=== PATIENT | male | born 1940 | race Caucasian/White ===

== ENCOUNTER → 2018-06-16 | Outpatient (CLI) | payer MEDICARE ==
--- NOTE | 2018-06-16 10:17 | US ---
EXAMINATION TYPE: US abdomen complete DATE OF EXAM: 06/16/2018 COMPARISON: NONE CLINICAL HISTORY: 78-year-old male R10.13 Epigastric pain. Nausea TECHNIQUE: Multiple sonographic images of the abdomen are obtained. FINDINGS: EXAM MEASUREMENTS: Liver Length: 10.8 cm Gallbladder Wall: 0.3 cm CBD: 0.4 cm Spleen: 10.0 cm Right Kidney: 11.3 x 4.8 x 5.8 cm Left Kidney: 10.4 x 5.8 x 6.2 cm Pancreas: visualized portions wnl. There is suboptimal visualization of the pancreatic tail due to s hadowing from bowel gas. Liver: wnl Gallbladder: No stones , abnormal gallbladder distention, wall thickening, or pericholecystic fluid seen Evidence for sonographic Mart's sign: No CBD: wnl Spleen: wnl Right Kidney: No hydronephrosis. Left Kidney: No hydronephrosis. Upper IVC: wnl Abd Aorta: wnl IMPRESSION: No specific sonographic abnormality of the abdomen.
--- NOTE | 2018-06-16 14:34 | FL ---
EXAMINATION: Upper GI examination DATE: 06/16/2018 CLINICAL INDICATION: 78-year-old male with reflux issues for 3 days, epigastric pain COMPARISON: None Total Fluoroscopy Time: 2 minutes. Total images: 33 FINDINGS: The esophagus has a normal course, caliber, motility and mucosa. There is a small hiatal hernia. Moderate gastroesophageal reflux is demonstrated initially when the patient is brought supine and is in the LPO position. The stomach and duodenum are free of any persistent filling defect and demonstrate a normal mucosal p attern. IMPRESSION: 1. Small hiatal hernia and moderate gastroesophageal reflux when the patient is first brought supine. 2. Otherwise, unremarkable upper GI examination.
== END | disposition home or self-care (01) ==
LOC: RADUSWWP 07:12
PROVIDERS: ATTEND Family Medicine
DX: K21.9 Gastro-esophageal reflux disease without esophagitis (principal); K44.9 Diaphragmatic hernia without obstruction or gangrene; R10.13 Epigastric pain
CPT/HCPCS: 74240; 76700

== ENCOUNTER → 2020-12-04 | Outpatient (CLI) | payer MEDICARE ==
--- NOTE | 2020-12-10 10:16 | P.ARTDOP ---
Arterial Doppler LOWER EXTREMITY ARTERIAL DOPPLER: DATE OF SERVICE: 12/04/2019 Reason for study: Bilateral calf pain with standing. Doppler waveforms: Multiphasic bilaterally throughout. Pulse volume recording: []. Pressure gradients: None. Ankle-brachial indices: Greater than 1 bilaterally. Toe brachial indices: [] on the right, [] on the left Impression: Normal study.
== END | disposition home or self-care (01) ==
LOC: RADUSWWP 12:58
PROVIDERS: ATTEND Family Medicine
DX: I70.211 Atherosclerosis of native arteries of extremities with intermittent claudication, right leg (principal)
CPT/HCPCS: 93922

== ENCOUNTER → 2020-12-11 | Outpatient (CLI) | payer MEDICARE ==
--- NOTE | 2020-12-11 13:52 | MR ---
EXAMINATION TYPE: MR lumbar spine wo con DATE OF EXAM: 12/11/2020 12:08 PM COMPARISON: NONE HISTORY: Pain into ron legs, sciatica Multiplanar, MultiSpin echo imaging of the lumbar spine was performed. L1-L2: Normal disc appearance without desiccation. No herniation, protrusion or disc bulging. No ca nal stenosis is present. Foramina are patent bilaterally. L2-L3: Moderate degenerative disc disease. Posterior disc bulge effaces the ventral thecal sac. No ev idence for elizabeth disc herniation or central stenosis. L3-L4: Moderate disc desiccation moderate posterior disc bulge. Effacement ventral thecal sac with mo derate central stenosis. Hypertrophy ligamentum flavum and facet joint arthropathy. Bilateral foramin al encroachment. L4-L5: Moderate disc desiccation moderate posterior disc bulge. Effacement ventral thecal sac with se alberto central stenosis. Hypertrophy ligamentum flavum and facet joint arthropathy. Bilateral foraminal encroachment. L5-S1: Mild disc desiccation noted. No herniation, protrusion or disc bulging. No canal stenosis is present. Foramina are patent bilaterally. Lumbar segments are intact. No paraspinal masses are identified. Conus medullaris has a normal appe arance. IMPRESSION: 1. Multilevel degenerative disc disease and central stenosis as outlined above.
== END | disposition home or self-care (01) ==
LOC: RADMRIMAIN 10:35
PROVIDERS: ATTEND Family Medicine
DX: M48.061 Spinal stenosis, lumbar region without neurogenic claudication (principal); M51.36 Other intervertebral disc degeneration, lumbar region
CPT/HCPCS: 72148

== ENCOUNTER → 2021-03-10 | Outpatient (CLI) | payer MEDICARE ==
--- NOTE | 2021-03-11 08:47 | XR ---
EXAMINATION TYPE: XR chest 2V DATE OF EXAM: 03/10/2021 COMPARISON: 04/28/2016 HISTORY: Night sweats, anemia TECHNIQUE: Frontal and lateral views of the chest are obtained. FINDINGS: Low lung volumes. Heart size is within normal limits. Tiny bilateral pleural effusions. Th ere is a focal patchy airspace opacity at the left lung base which is somewhat nodular. This may repr esent infectious/inflammatory focus. Follow-up to resolution is recommended to exclude underlying george plasm. No pneumothorax. IMPRESSION: 1.tiny bilateral pleural effusions. 2. Patchy airspace opacity at the left lung base is somewhat nodular. Follow-up to resolution is marlon mmended for infectious/inflammatory process. Underlying neoplasm is not excluded.
== END | disposition home or self-care (01) ==
LOC: RADXRMAIN 16:28
PROVIDERS: ATTEND Family Medicine
DX: J90 Pleural effusion, not elsewhere classified (principal); R91.8 Other nonspecific abnormal finding of lung field
CPT/HCPCS: 71046

== ENCOUNTER → 2021-03-26 | Outpatient (CLI) | payer MEDICARE ==
--- NOTE | 2021-03-26 17:28 | CT ---
EXAMINATION TYPE: CT chest wo con DATE OF EXAM: 03/26/2021 COMPARISON: Chest x-ray March 10, 2021 HISTORY: Abnormal imaging. Patient has no complaints at time of scan. CT DLP: 305.1 mGycm. Automated Exposure Control for Dose Reduction was Utilized. TECHNIQUE: CT scan of the thorax is performed without IV contrast. FINDINGS: LUNGS: There is persistent soft tissue density nodule lateral right lung base measuring 1.7 x 0.6 cm axial image 56 mild linear scarring anterior to this is present. No suspicious focal consolidation in either lung. Mild biapical pleural/parenchymal scarring. No pleural effusion or pneumothorax seen. T racheobronchial tree is patent. MEDIASTINUM: Lack of IV contrast is noted to limit evaluation for mediastinal and especially hilar ad enopathy. There are no definitive greater than 1 cm mediastinal lymph nodes. No cardiomegaly or per icardial effusion is seen. Moderate three-vessel coronary artery calcification. Correlate with additi onal cardiac risk factors. Ascending aortic aneurysm up to 4.0 cm axial image 32. OTHER: Exaggerated kyphosis with moderate multilevel spurring. IMPRESSION: Corresponding to x-ray there is persistent 1.7 x 0.6 cm lateral right basilar nodule. Con concrete engineer PET/CT to further evaluate. There is 4.0 cm ascending aortic aneurysm.
--- NOTE | 2021-03-27 18:45 | ECHOF ---
Referral Reason:R91.8 abnormal imaging, MEASUREMENTS -------- HEIGHT: 182.9 cm WEIGHT: 81.6 kg BP: RVIDd: 2.9 cm (< 3.3) IVSd: 1.1 cm (0.6 - 1.1) LVIDd: 4.3 cm (3.9 - 5.3) LVPWd: 1.1 cm (0.6 - 1.1) IVSs: 1.2 cm LVIDs: 3.4 cm LVPWs: 1.3 cm LA Diam: 3.5 cm (2.7 - 3.8) LAESV Index (A-L): 24.98 ml/m Ao Diam: 3.1 cm (2.0 - 3.7) AV Cusp: 2.0 cm (1.5 - 2.6) MV EXCURSION: 20.824 mm (> 18.000) MV EF SLOPE: 82 mm/s (70 - 150) EPSS: 0.2 cm MV E Francisco J: 0.77 m/s MV DecT: 125 ms MV A Francisco J: 0.54 m/s MV E/A Ratio: 1.43 RAP: 5.00 mmHg RVSP: 29.11 mmHg FINDINGS -------- Sinus rhythm. This was a technically good study. LV size, wall thickness and systolic function are normal, with an EF greater than 55%. The left shayan tricular size is normal. The right ventricle is normal in size. Normal LA size by volume 22+/-6 ml/m2. The right atrial size is normal. The aortic valve is trileaflet, and appears structurally normal. No aortic stenosis or regurgitation. Mild mitral regurgitation is present. Mild tricuspid regurgitation present. Right ventricular systolic pressure is normal at < 35 mmHg. There is no pulmonic regurgitation present. There is no pericardial effusion. CONCLUSIONS -------- 1. LV size, wall thickness and systolic function are normal, with an EF greater than 55%. 2. The left ventricular size is normal. 3. The right ventricle is normal in size. 4. Normal LA size by volume 22+/-6 ml/m2. 5. The right atrial size is normal. 6. The aortic valve is trileaflet, and appears structurally normal. No aortic stenosis or regurgitati on. 7. Mild mitral regurgitation is present. 8. Mild tricuspid regurgitation present. 9. There is no pulmonic regurgitation present. 10. There is no pericardial effusion. SALES TEAM LEADER: Michelle Espinal RDCS
== END | disposition home or self-care (01) ==
LOC: RADCTMAIN 14:49
PROVIDERS: ATTEND Family Medicine
DX: I08.1 Rheumatic disorders of both mitral and tricuspid valves (principal); R91.1 Solitary pulmonary nodule
CPT/HCPCS: 71250; 93306

== ENCOUNTER → 2021-04-10 | Outpatient (CLI) | payer MEDICARE ==
--- NOTE | 2021-04-14 13:13 | PE ---
EXAMINATION TYPE: PET CT fusion skull to thigh DATE OF EXAM: 04/10/2021 COMPARISON: CT chest 03/26/2021 Prior PET/CT: None HISTORY: Lung nodule TECHNIQUE: Following the intravenous administration of 11.57 mCi of F-18 FDG, whole body images are performed from the skull base to the midthigh. Images are reviewed on the computer in the coronal, a xial, and sagittal planes. Reconstructed rotating images are created on independent workstation and reviewed on the computer. A localization and attenuation correction CT is performed in conjunction with the PET scan. DLP: 475.30 mGycm SCAN: Initial Scan Blood glucose: 80 mg/dL Average Mediastinum SUV: 1.27 Average Liver SUV: 1.2 FINDINGS: NECK: No abnormal uptake THORAX: No abnormal uptake. The density of the right costophrenic angle is not visualized on the curr ent localization CT. Consider follow-up CT chest and 6 months. ABDOMEN: No abnormal uptake PELVIS: No abnormal uptake OSSEOUS STRUCTURES: Technique LOCALIZATION CT: Previous density at the right costophrenic angle less well-visualized than on compar abby. COMPARISON: Resolving density at the right costophrenic angle IMPRESSION: 1. No suspicious uptake to suggest primary or metastatic neoplasm. Recommendations: 1. Follow-up standard CT chest 6 months.
== END | disposition home or self-care (01) ==
LOC: RADPETMAIN 12:18
PROVIDERS: ATTEND Internal Medicine Critical Care Medicine
DX: R91.1 Solitary pulmonary nodule (principal)
CPT/HCPCS: 78815; A9552

== ENCOUNTER → 2021-10-13 | Outpatient (CLI) | payer MEDICARE ==
--- NOTE | 2021-10-13 14:11 | CT ---
EXAMINATION TYPE: CT chest w con DATE OF EXAM: 10/13/2021 COMPARISON: 04/10/2021, 03/26/2020 HISTORY: Follow-up lung nodule CT DLP: 503 mGycm Automated exposure control for dose reduction was used. TECHNIQUE: CT scan of the chest is performed with IV Contrast, patient injected with 100 mL of Isovue 300. MIP Images are created on CT scanner and reviewed. 3D reconstructed images are created on an independent workstation and reviewed. FINDINGS: LUNGS: There is persistent soft tissue density nodule lateral right lung base measuring 0.85 x 0.6 cm and previously measured 1.7 x 0.6 cm. Biapical pleural thickening with areas of subpleural nodularit y is stable. Underlying COPD suggested. No suspicious focal consolidation in either lung. Mild biapic al pleural/parenchymal scarring. No pleural effusion or pneumothorax seen. Tracheobronchial tree is p atent. Tree-in-bud pattern seen along the right lung base likely postinflammatory with tiny sub-5 mm nodules too small to characterize MEDIASTINUM: There are no greater than 1 cm hilar or mediastinal lymph nodes. Atherosclerotic change aorta. Thoracic aorta measures 3.9 cm stable compatible with mild aneurysmal dilation of the ascendin g aorta.. OTHER: Hypertrophic and degenerative change of the spine IMPRESSION: 1. Interval reduction in size of the right lower lobe basilar nodule laterally measuring 0.8 x 0.6 cm and previously measuring 1.7 x 0.6 cm. 2. COPD with stable apical pleural thickening and subcentimeter subpleural nodularity unchanged from prior exam. There is a tree-in-bud pattern seen localized in the lateral segment right lower lobe is nonspecific and likely inflammatory and can be followed on short-term basis to resolution.
== END | disposition home or self-care (01) ==
LOC: RADCTMAIN 12:21
PROVIDERS: ATTEND Internal Medicine Critical Care Medicine
DX: R91.1 Solitary pulmonary nodule (principal); J44.9 Chronic obstructive pulmonary disease, unspecified; J92.9 Pleural plaque without asbestos
CPT/HCPCS: 82565; 84520; 71260; 36415; Q9967

== ENCOUNTER → 2022-11-11 | Outpatient (CLI) | payer MEDICARE ==
--- NOTE | 2022-11-11 14:58 | CT ---
EXAMINATION TYPE: CT chest w con DATE OF EXAM: 11/11/2022 COMPARISON: 10/13/2021 HISTORY: Lung Nodule CT DLP: 376 mGycm Automated exposure control for dose reduction was used. CONTRAST: CT scan of the chest is performed with IV Contrast, patient injected with 100 ml mL of Isovue 300. FINDINGS: LUNGS: Stable nodular density right lateral lung base measuring 0.8 x 0.6 cm. Stable tree in bud micr onodularity right lower lobe likely inflammatory/postinflammatory in nature seen best on image 56 of 68 sequence 4. Stable biapical scarring. No new nodules or masses. No evidence for infiltrate, volume loss or pleural effusion. MEDIASTINUM: There are no greater than 1 cm hilar or mediastinal lymph nodes. No pericardial effusi on is seen. Thoracic aorta is of normal caliber. The heart is not enlarged. UPPER ABDOMEN: No significant abnormality appreciated. OTHER: No additional significant abnormality is seen. IMPRESSION: Stable appearance of the chest.
== END | disposition home or self-care (01) ==
LOC: RADCTMAIN 12:56
PROVIDERS: ATTEND Internal Medicine Critical Care Medicine
DX: R91.1 Solitary pulmonary nodule (principal)
CPT/HCPCS: 82565; 84520; 71260; 36415; Q9967

== ENCOUNTER → 2022-11-15 | Outpatient (CLI) | payer MEDICARE ==
--- NOTE | 2022-11-15 11:10 | MR ---
EXAMINATION TYPE: MR lumbar spine wo con DATE OF EXAM: 11/15/2022 COMPARISON: 12/11/2020 HISTORY: Low back pain, stenosis TECHNIQUE: T1 and T2 axial and sagittal images of the lumbar spine are submitted. FINDINGS: There is no abnormal signal seen within the visualized spinal cord or paraspinal soft tissu es. At L1-2 there is hypertrophic change of the facets with no disc herniation or canal stenosis. Neural foramina At L2-3 there is degenerative disc disease with hypertrophic change since an ligamentum flavum. Diffu se disc bulging with moderate canal stenosis and bilateral foraminal curvature. At L3-4 there is diffuse disc bulging advanced atrophic facet arthropathy and ligamentum flavum resul ting in moderate to severe canal stenosis and bilateral foraminal At L4-5 there is broad-based disc protrusion with advanced facet arthropathy with hypertrophic change s and ligamentum flavum resulting in severe canal stenosis and bilateral foraminal At L5-S1 there is advanced hypertrophic change of the facets. Mild flattening of the thecal sac. Mild bilateral foraminal encroachment. Mild canal stenosis. IMPRESSION: 1. Multilevel degenerative disc disease with minimal anterior listhesis of L4 on L5. There is multile chacha significant canal stenosis with severe changes at L4-L5. Severe bilateral foraminal encroachment at this level.
== END | disposition home or self-care (01) ==
LOC: RADMRIMAIN 09:24
DX: M51.36 Other intervertebral disc degeneration, lumbar region (principal); M48.062 Spinal stenosis, lumbar region with neurogenic claudication; M99.73 Connective tissue and disc stenosis of intervertebral foramina of lumbar region; M43.16 Spondylolisthesis, lumbar region
CPT/HCPCS: 72148

== ENCOUNTER 2023-01-23 11:15 | Inpatient (IN) | payer MEDICARE ==
[2023-01-23] MEDS ORDERED: SODIUM CHLORIDE 0.9% 500 ML 500 ML IV STA (11:24)
[2023-01-23] MEDS ORDERED: HEPARIN SODIUM 1,000 UN/ML (10ML VL) IV ONE (11:25)
[2023-01-23] MEDS ORDERED: DILTIAZEM DRIP BOLUS FROM BAG 1 MG SOLN IV ONE (11:25)
--- NOTE | 2023-01-23 11:28 | ED ---
General Adult HPI - General Stated complaint: AFib Time Seen by Provider: 01/23/23 11:15 Source: patient, EMS, RN notes reviewed, old records reviewed Mode of arrival: EMS Limitations: no limitations - History of Present Illness Initial comments: This is an 82-year-old male who presents emergency department after he went to an urgent care. Patient states he was here she Can feel his heart racing. Patient has no history of any irregular heartbeat or atrial fibrillation that he knows of. Patient states when he went there they told him he had atrial fibrillation in the transferred to the hospital via ambulance. Patient denies any fever chills or cough. Patient denies any chest pain. Patient states he still can feel his heart racing per patient denies any abdominal pain patient denies nausea vomiting diarrhea. Patient denies any headache patient denies lightheadedness or dizziness. - Related Data Home Medications Medication Instructions Recorded Confirmed atenoloL [Tenormin] 50 mg PO HS 01/23/23 01/23/23 Allergies Allergy/AdvReac Type Severity Reaction Status Date / Time No Known Allergies Allergy Verified 01/23/23 11:46 Review of Systems ROS Statement: Those systems with pertinent positive or pertinent negative responses have been documented in the HPI. ROS Other: All systems not noted in ROS Statement are negative. Past Medical History Past Medical History: Hearing Disorder / Deafness, Hypertension Additional Past Medical History / Comment(s): ABDELRAHMAN HEARING AIDS. History of Any Multi-Drug Resistant Organisms: None Reported Past Surgical History: Tonsillectomy Additional Past Surgical History / Comment(s): COLONOSCOPY Past Anesthesia/Blood Transfusion Reactions: No Reported Reaction Additional Past Anesthesia/Blood Transfusion Reaction / Comment(s): PTS UNSURE OF FAMILY HX. Past Psychological History: No Psychological Hx Reported Smoking Status: Former smoker Past Alcohol Use History: Daily, Occasional Past Drug Use History: None Reported - Past Family History Mother Family Medical History: No Reported History General Exam - General Exam Comments Initial Comments: GENERAL: Patient is well-developed and well-nourished. Patient is nontoxic and well- hydrated and is in mild distress. ENT: Neck is soft and supple. No significant lymphadenopathy is noted. Oropharynx is clear. Moist mucous membranes. Neck has full range of motion without eliciting any pain. EYES: The sclera were anicteric and conjunctiva were pink and moist. Extraocular movements were intact and pupils were equal round and reactive to light. Eyelids were unremarkable. PULMONARY: Unlabored respirations. Good breath sounds bilaterally. No audible rales rhonchi or wheezing was noted. CARDIOVASCULAR: Patient is tachycardic at about 140 beats a minute it is irregularly irregular ABDOMEN: Soft and nontender with normal bowel sounds. No palpable organomegaly was noted. There is no palpable pulsatile mass. SKIN: Skin is clear with no lesions or rashes and otherwise unremarkable. NEUROLOGIC: Patient is alert and oriented x3. Cranial nerves II through XII are grossly intact. Motor and sensory are also intact. Normal speech, volume and content. Symmetrical smile. MUSCULOSKELETAL: Normal extremities with adequate strength and full range of motion. No lower extremity swelling or edema. No calf tenderness. LYMPHATICS: No significant lymphadenopathy is noted PSYCHIATRIC: Normal psychiatric evaluation. Limitations: no limitations Course Vital Signs 01/23/23 01/23/23 11:16 12:32 Temperature 98.3 F Pulse Rate 126 H 102 H Respiratory 18 18 Rate Blood Pressure 123/76 110/75 O2 Sat by Pulse 98 98 Oximetry Medical Decision Making - Medical Decision Making EKG was interpreted by myself shows atrial fibrillation with rapid ventricular response at 126 bpm QRS is 92 QT interval 318 QTC is 393. Patient's EKG shows no ST segment elevation or depression Was pt. sent in by a medical professional or institution ([facility] Waters, [employer], urgent care, hospital, or correction...) When possible be specific @ -No Did you speak to anyone other than the patient for history (EMS, parent, family, police, friend...)? What history was obtained from this source @ -No Did you review nursing and triage notes (agree or disagree)? Why? @ -I reviewed and agree with nursing and triage notes Were old charts reviewed (outside hosp., previous admission, EMS record, old EKG, old radiological studies, urgent care reports/EKG's, correction records)? Report findings @ -I reviewed prior charts lab results Differential Diagnosis (chest pain, altered mental status, abdominal pain women, abdominal pain men, vaginal bleeding, weakness, fever, dyspnea, syncope, headache, dizziness, GI bleed, back pain, seizure, CVA, palpatations, mental health, musculoskeletal)? @ -Differential Palpitations Ventricular arrhythmias, atrial arrhythmias, myocardial infarction, anemia, thyrotoxicosis, electrolyte imbalance, hypokalemia, pulmonary embolism, pulmonary disease, drugs, alcohol, anxiety, stress.... This is not meant to be an all-inclusive list. EKG interpreted by me (3pts min.). @ -As above X-rays interpreted by me (1pt min.). @ -Chest x-ray was interpreted by myself No Acute Abnormalities CT interpreted by me (1pt min.). @ -None done U/S interpreted by me (1pt. min.). @ -None done What testing was considered but not performed or refused? (CT, X-rays, U/S, labs)? Why? @ -None What meds were considered but not given or refused? Why? @ -None Did you discuss the management of the patient with other professionals (professionals i.e. , PA, [employer], lab, RT, psych nurse, manager social responsibility, seam steamer, teacher, state highway police officer, supportive employment case manager)? Give summary @ -Spoke with some physicians agreed to admit the patient and the patient wrote admitting orders Was smoking cessation discussed for >3mins.? @ -No Was critical care preformed (if so, how long)? @ -Minutes Were there social determinants of health that impacted care today? How? (Homelessness, low income, unemployed, alcoholism, drug addiction, transport ation, low edu. Level, literacy, decrease access to med. care, shelter, rehab)? @ -No Was there de-escalation of care discussed even if they declined (Discuss DNR or withdrawal of care, Hospice)? DNR status @ -No What co-morbidities impacted this encounter? (DM, HTN, Smoking, COPD, CAD, Cancer, CVA, ARF, Chemo, Hep., AIDS, mental health diagnosis, sleep apnea, morbid obesity)? @ -None Was patient admitted / discharged? Hospital course, mention meds given and route, prescriptions, significant lab abnormalities, going to OR and other pertinent info. @ -Patient came in in atrial fibrillation which was new for him. Patient was placed on Cardizem after Cardizem bolus. Patient was started on heparin. Labs came back I spoke with the sound physician's he agreed to admit the patient I admitted the patient wrote admitting orders. Undiagnosed new problem with uncertain prognosis? @ -No Drug Therapy requiring intensive monitoring for toxicity (Heparin, Nitro, Insulin, Cardizem)? @ -No Were any procedures done? @ -No Diagnosis/symptom? @ -New onset A. fib with rapid ventricular response Acute, or Chronic, or Acute on Chronic? @ -Acute Uncomplicated (without systemic symptoms) or Complicated (systemic symptoms)? @ -Complicated Side effects of treatment? @ -No Exacerbation, Progression, or Severe Exacerbation? @ -No Poses a threat to life or bodily function? How? (Chest pain, [place], PR, pneumonia, PE, COPD, DKA, ARF, appy, cholecystitis, CVA, Diverticulitis, Homicidal, Suicidal, threat to staff... and all critical care pts) @ -Yes this could be due to hypoperfusion and end organ dysfunction - Lab Data Result diagrams: 01/23/23 11:29 01/23/23 11:29 Lab Results 01/23/23 01/23/23 01/23/23 Range/Units 11:29 11:29 11:29 WBC 6.2 (3.8-10.6) k/uL RBC 4.62 (4.30-5.90) m/uL Hgb 14.9 (13.0-17.5) gm/dL Hct 42.9 (39.0-53.0) % MCV 92.7 (80.0-100.0) fL MCH 32.2 (25.0-35.0) pg MCHC 34.8 (31.0-37.0) g/dL RDW 12.4 (11.5-15.5) % Plt Count 166 (150-450) k/uL MPV 9.2 Neutrophils % 68 % Lymphocytes % 22 % Monocytes % 6 % Eosinophils % 2 % Basophils % 0 % Neutrophils # 4.2 (1.3-7.7) k/uL Lymphocytes # 1.3 (1.0-4.8) k/uL Monocytes # 0.4 (0-1.0) k/uL Eosinophils # 0.1 (0-0.7) k/uL Basophils # 0.0 (0-0.2) k/uL PT 10.8 (9.0-12.0) sec INR 1.0 (<1.2) APTT 23.5 (22.0-30.0) sec Sodium 140 (137-145) mmol/L Potassium 4.4 (3.5-5.1) mmol/L Chloride 105 (98-107) mmol/L Carbon Dioxide 28 (22-30) mmol/L Anion Gap 7 mmol/L BUN 28 H (9-20) mg/dL Creatinine 1.04 (0.66-1.25) mg/dL Est GFR (CKD-EPI)AfAm 77 (>60 ml/min/1.73 sqM) Est GFR (CKD-EPI)NonAf 67 (>60 ml/min/1.73 sqM) Glucose 146 H (74-99) mg/dL Calcium 9.6 (8.4-10.2) mg/dL Magnesium 2.2 (1.6-2.3) mg/dL Total Bilirubin 0.9 (0.2-1.3) mg/dL AST 35 (17-59) U/L ALT 22 (4-49) U/L Alkaline Phosphatase 64 (38-126) U/L Troponin I (0.000-0.034) ng/mL Total Protein 7.4 (6.3-8.2) g/dL Albumin 4.4 (3.5-5.0) g/dL TSH 1.990 (0.465-4.680) mIU/L 01/23/23 Range/Units 11:29 WBC (3.8-10.6) k/uL RBC (4.30-5.90) m/uL Hgb (13.0-17.5) gm/dL Hct (39.0-53.0) % MCV (80.0-100.0) fL MCH (25.0-35.0) pg MCHC (31.0-37.0) g/dL RDW (11.5-15.5) % Plt Count (150-450) k/uL MPV Neutrophils % % Lymphocytes % % Monocytes % % Eosinophils % % Basophils % % Neutrophils # (1.3-7.7) k/uL Lymphocytes # (1.0-4.8) k/uL Monocytes # (0-1.0) k/uL Eosinophils # (0-0.7) k/uL Basophils # (0-0.2) k/uL PT (9.0-12.0) sec INR (<1.2) APTT (22.0-30.0) sec Sodium (137-145) mmol/L Potassium (3.5-5.1) mmol/L Chloride (98-107) mmol/L Carbon Dioxide (22-30) mmol/L Anion Gap mmol/L BUN (9-20) mg/dL Creatinine (0.66-1.25) mg/dL Est GFR (CKD-EPI)AfAm (>60 ml/min/1.73 sqM) Est GFR (CKD-EPI)NonAf (>60 ml/min/1.73 sqM) Glucose (74-99) mg/dL Calcium (8.4-10.2) mg/dL Magnesium (1.6-2.3) mg/dL Total Bilirubin (0.2-1.3) mg/dL AST (17-59) U/L ALT (4-49) U/L Alkaline Phosphatase (38-126) U/L Troponin I <0.012 (0.000-0.034) ng/mL Total Protein (6.3-8.2) g/dL Albumin (3.5-5.0) g/dL TSH (0.465-4.680) mIU/L Critical Care Time Critical Care Time: Yes Total Critical Care Time: 35 Disposition Clinical Impression: Atrial fibrillation with rapid ventricular response Disposition: ADMITTED IP TO THIS HOSP Referrals: Jeramy Oh MD [Primary Care Provider] - 1-2 days Time of Disposition: 13:02
[2023-01-23] MEDS ORDERED: DILTIAZEM 125 MG in SODIUM CHLORIDE 0.9% 100 ML IV SCH (11:30)
[2023-01-23] MEDS ORDERED: HEPARIN SOD,PORK IN 0.45% NACL 25,000 UNIT in 0.45% NACL 1 250ML.BAG IV SCH (11:30)
[2023-01-23 11:46] LABS: Basophils % (A) 0 %; Eosinophils # (A) 0.1 k/uL (0-0.7); Eosinophils % (A) 2 %; HCT 42.9 % (39.0-53.0); HGB 14.9 gm/dL (13.0-17.5); Lymphocytes # (A) 1.3 k/uL (1.0-4.8); Lymphocytes % (A) 22 %; MCH 32.2 pg (25.0-35.0); MCHC 34.8 g/dL (31.0-37.0); MCV 92.7 fL (80.0-100.0); Mean Platelet Volume 9.2; Monocytes # (A) 0.4 k/uL (0-1.0); Monocytes % (A) 6 %; Neutrophils # (A) 4.2 k/uL (1.3-7.7); Neutrophils % (A) 68 %; Platelet Count 166 k/uL (150-450); RBC 4.62 m/uL (4.30-5.90); RDW 12.4 % (11.5-15.5); WBC 6.2 k/uL (3.8-10.6)
--- NOTE | 2023-01-23 11:49 | XR ---
EXAMINATION TYPE: XR chest 2V DATE OF EXAM: 01/23/2023 COMPARISON: 03/10/2021 HISTORY: Night sweats and lower extremity swelling TECHNIQUE: Frontal and lateral views of the chest are obtained. FINDINGS: There is no focal air space opacity, pleural effusion, or pneumothorax seen. The cardiac silhouette size is within normal limits. The osseous structures are intact. IMPRESSION: No acute cardiopulmonary process.
[2023-01-23 11:53] LABS: Albumin 4.4 g/dL (3.5-5.0); Calcium 9.6 mg/dL (8.4-10.2); Total Bilirubin 0.9 mg/dL (0.2-1.3); Total Protein 7.4 g/dL (6.3-8.2)
[2023-01-23 11:58] LABS: Partial Thromboplastin Time 23.5 sec (22.0-30.0); Prothrombin Time 10.8 sec (9.0-12.0)
[2023-01-23 12:02] LABS: Magnesium 2.2 mg/dL (1.6-2.3); Potassium 4.4 mmol/L (3.5-5.1)
[2023-01-23] MEDS ORDERED: NITROGLYCERIN SL TABS 0.4 MG TAB SUBLINGUAL PRN (13:02)
[2023-01-23] MEDS: ASPIRIN 325 MG TAB PO SCH (14:49)
--- NOTE | 2023-01-23 15:04 | P.HPIM ---
History of Present Illness H&P Date: 01/23/23 Chief Complaint: palpitations Patient is an 82-year-old male with hypertension, hearing disorder, and lung nodule who presented to the emergency department via EMS from urgent care where he had presented due to palpitations. An EKG had been performed which showed new onset A. fib. On arrival to the ER he was found be tachycardic with a pulse of 126. EKG confirmed atrial fibrillation with rapid ventricular response at 126 bpm. Initial laboratory analysis reviewed with normal potassium, magnesium, TSH, and troponin. Chest x-ray unrevealing. Patient was given a Cardizem bolus and started on Cardizem drip. Arrangements were made for admission to the telemetry unit. Patient seen and examined at bedside. He reports that on waking today he noted some heavy, rapid heart beats asociated with lightheadedness. He was supossed to drive to [place] and did not feel quite right and decided to go to urgent care. He denies any chest pain, shortness of breath, nausea, vomiting. He has chronic tingling in his bilateral fingertips and some weakness. He reports that he stopped taking his atenolol 2 days ago, he has an upcoming cervical fusion procedure scheduled and continues his atenolol with a blood thinner and therefore discontinued this medication. He denies any known cardiac problems or following with a crossing flagman in the past. He sees Dr. Oh for his primary care physician. Vital signs reviewed General: nontoxic, no distress, appears at stated age Derm: warm, dry Eyes: EOMI, no lid lag, anicteric sclera, pupils equal round reactive to light ENT: Nose and ears atraumatic, hard of hearing with hearing aids in place. Cardiovascular: S1S2 irreg, no murmur, positive posterior tibial pulse bilateral, no edema Lungs: clear to auscultation bilateral, no rhonchi, no rales, no wheeze, no accessory muscle use Abdominal: soft, nontender to palpation, no guarding Ext: no gross muscle atrophy, no contractures Neuro: CN II-XII grossly intact, No focal neuro deficits on gross exam Psych: Alert, oriented, appropriate affect Assessment: Newly discovered atrial fibrillation with rapid ventricular response, CHADSVASc 3 Hypertension Cervical stenosis with planned cervical fusion February 17 Imaging: EKG is reviewed by myself revealed atrial fibrillation with rapid ventricular response at a rate of 126 bpm, normal axis, QT 318 Chest x-ray as reviewed by myself demonstrates no acute process Data Review: Vital signs on arrival temperature 98.3, pulse 126, respirations 18, blood pressure 123/76, O2 sat 98% on room air Laboratory analysis reviewed and remarkable for BUN 28, glucose 146. Troponin was negative 2 at less than 0.012, TSH 1.990, potassium 4.4, magnesium 2.2 Plan: - admit patient to telemetry unit -Continue with Cardizem drip at 5 mcg/h. Continue to follow heart rate on telemetry -Check echo in a.m. -Cardiology consultation -Continue with heparin drip. Likely transition to Xarelto versus Eliquis in a.m. The patient is admitted with an anticipated greater than 2 midnight stay for evaluation of A fib with RVR. Surrogate decision-maker: Rylee Angela CODE STATUS: Full DVT prophylaxis: Heparin gtt Anticipated discharge date: Pending clinicial course Anticipated discharge place: home This dictation was prepared using [employer] voice recognition software. Though every attempt is made to correct errors during during dictation some may still exist. Past Medical History Past Medical History: Hearing Disorder / Deafness, Hypertension Additional Past Medical History / Comment(s): ABDELRAHMAN HEARING AIDS. Cervical Stenosis History of Any Multi-Drug Resistant Organisms: None Reported Past Surgical History: Tonsillectomy Additional Past Surgical History / Comment(s): COLONOSCOPY Past Anesthesia/Blood Transfusion Reactions: No Reported Reaction Additional Past Anesthesia/Blood Transfusion Reaction / Comment(s): PTS UNSURE OF FAMILY HX. Past Psychological History: No Psychological Hx Reported Smoking Status: Former smoker (quit in the 1970s ) Past Alcohol Use History: Daily (birgit 2 drinks dialy, but none in the last 40 days ), Occasional Past Drug Use History: None Reported - Past Family History Mother History Unknown: Yes Family Medical History: No Reported History Medications and Allergies Home Medications Medication Instructions Recorded Confirmed Type atenoloL [Tenormin] 50 mg PO HS 01/23/23 01/23/23 History Allergies Allergy/AdvReac Type Severity Reaction Status Date / Time No Known Allergies Allergy Verified 01/23/23 11:46 Physical Exam Osteopathic Statement: *. No significant issues noted on an osteopathic structural exam other than those noted in the History and Physical/Consult. Vitals: Vital Signs Temp Pulse Pulse Resp BP BP Pulse Ox 01/23/23 13:57 97.8 F 79 18 117/68 99 01/23/23 13:34 90 18 107/76 98 01/23/23 13:00 90 18 114/86 98 01/23/23 12:32 102 H 18 110/75 98 01/23/23 11:16 98.3 F 126 H 18 123/76 98 Intake and Output 01/22/23 01/23/23 01/23/23 22:59 06:59 14:59 Other: Voiding Method Toilet Urinal Weight 72.575 kg Results CBC & Chem 7: 01/23/23 11:29 01/23/23 11:29 Labs: Abnormal Lab Results - Last 24 Hours (Table) 01/23/23 Range/Units 11:29 BUN 28 H (9-20) mg/dL Glucose 146 H (74-99) mg/dL Thrombosis Risk Factor Assmnt - Choose All That Apply Any of the Below Risk Factors Present?: No Other Risk Factors: No Other congenital or acquired thrombophilia - If yes, enter type in comment: No Thrombosis Risk Factor Assessment Level: Very Low Risk
[2023-01-24] MEDS: ASPIRIN 325 MG TAB PO SCH (08:01)
[2023-01-24 09:20] LABS: LDL Cholesterol,Calculated 60.5 mg/dL (0.0-131.0); VLDL Calculation 7.42 mg/dL (5.00-40.00)
[2023-01-24] MEDS: METOPROLOL SUCCINATE (ER) 50 MG TAB.ER.24H PO SCH (09:45)
[2023-01-24] MEDS: APIXABAN 5 MG TAB PO SCH ×2 (09:45→19:48)
--- NOTE | 2023-01-24 11:00 | CONS ---
CONSULTATION HISTORY OF PRESENT ILLNESS: This is an 82-year-old gentleman with a past history of hypertension. He is a fairly active 82-year-old who was recently evaluated by a neurosurgeon, Dr. Ruben Quintana from [facility]. They did a workup in form of echocardiogram and probably a stress test at [facility] about a week ago, details of which are not available. He woke up yesterday and felt that his heart was beating stronger, felt a little rapid heartbeat sensation, some lightheadedness, but no syncope. He was planning on going to [place]. He continued to go to [place], started out, and felt a little lightheaded and decided to go to the [facility] on [facility] [address] [facility] [address], and there, he was told he was in atrial fibrillation, and then EMS was called, and he went to the emergency room. In the emergency room, he was found to be in atrial fibrillation and was started on a Cardizem drip. The rate was moderately fast in the 130 range, and he was given intravenous Cardizem. He converted to sinus rhythm. This is the first time he had the episode. He does not recall any previous episodes. It happened randomly. It actually woke him up from sleep. He takes atenolol 50 mg daily for hypertension, but he has not taken that in 2 days. He is comfortable, resting in a sinus rhythm at 74 beats per minute at the time of my evaluation. PAST MEDICAL HISTORY: 1. Hypertension. 2. Some hearing impairment and wears hearing aids. PAST SURGICAL HISTORY: He is status post tonsillectomy. No other surgeries. He is a remarkably healthy person. SOCIAL HISTORY: He quit smoking 50 years ago. PHYSICAL EXAMINATION: VITAL SIGNS: Blood pressure is 120/70, pulse rate is 74. HEENT: Unremarkable. Fundus was not examined by me. NECK: Supple. There is no JVD. I do not hear a carotid bruit. HEART: Reveals S1 and S2 heard normally. There is a short systolic murmur at left sternal border. LUNGS: Reveal bilateral decent air entry. ABDOMEN: Soft and nontender. EXTREMITIES: Lower extremities reveal normal pulses. No edema. CENTRAL NERVOUS SYSTEM: Normal. IMPRESSION: 1. Paroxysmal atrial fibrillation, back in sinus rhythm. 2. Hypertension, under fair control. 3. He has probable cervical spine or thoracic spine surgery, for which he had a recent workup and is being considered for spine surgery by Dr. Quintana at [facility] sometime in February, details unavailable. RECOMMENDATIONS: I explained to the patient that he has atrial fibrillation, and he remains at risk for embolic stroke given his age and also hypertension. I will start him on Eliquis [address] him on metoprolol succinate 50 mg daily instead of atenolol since it is more long-acting. I will obtain the records in terms of the echo and if the stress test was performed at [facility], and he can be discharged later on today. This information will be available prior to surgery. I advised him that he has to stop the blood thinner at least 72 hours prior to spine surgery, but he should talk to his own head kiln operator and surgeon prior to the procedure. We will increase activity and discharged later on today after doing the above. If I cannot find the echo report, I will do an echo here in the hospital. Thank you very much for the consult. DEYVI / SHERRIN: [id number] /
--- NOTE | 2023-01-24 17:50 | P.PN ---
Subjective Progress Note Date: 01/24/23 (delayed charting seen at 1110) Patient is an 82-year-old male with hypertension, hearing disorder, and lung nodule who presented to the emergency department via EMS from urgent care where he had presented due to palpitations. An EKG had been performed which showed new onset A. fib. On arrival to the ER he was found be tachycardic with a pulse of 126. EKG confirmed atrial fibrillation with rapid ventricular response at 126 bpm. Initial laboratory analysis reviewed with normal potassium, magnesium, TSH, and troponin. Chest x-ray unrevealing. Patient was given a Cardizem bolus and started on Cardizem drip. Arrangements were made for admission to the telemetry unit. Cardiology was consulted. His Cardizem drip was uptitrated and then he converted to sinus rhythm. He was transitioned to oral metoprolol and Eliquis. Patient seen and examined at bedside. He denies any chest pain, shortness of breath, nausea, vomiting. He is feeling well. He is nervous about what will happen to his proposed surgery. Vital signs reviewed General: nontoxic, no distress, appears at stated age Cardiovascular: S1S2 reg, no murmur, positive posterior tibial pulse bilateral, Lungs: CTA bilateral, no rhonchi, no rales , no accessory muscle use Abdominal: soft, nontender to palpation, no guarding, no appreciable organomegaly Ext: no gross muscle atrophy, no edema, no contractures Neuro: CN II-XI grossly intact, no focal neuro deficits Psych: Alert, oriented, appropriate affect Assessment: Newly discovered atrial fibrillation with rapid ventricular response, CHADSVASc 3 Hypertension Cervical stenosis with planned cervical fusion February 17 Imaging: none new Data Review: AM vital signs reviewed and temperature 98.1, pulse 77, respirations 18, blood pressure 125/75, O2 sat 97% on room air Cholesterol profile within normal limits. Plan: -Was hoping to discharge patient today however echocardiogram still has not r esulted at 1744. We'll need to await echo -Case discussed with cardiology nurse practitioner. Diltiazem drip has been discontinued, patient has been started on metoprolol 50 mg daily, Eliquis 5 twic e daily has been started -Discussed with case management and Eliquis co-pay will be $45 monthly -Continue with telemetry Discharge in once echo available This dictation was prepared using dragon medical voice recognition software. Though every attempt is made to correct errors during during dictation some may still exist. Objective - Vital Signs Vital signs: Vital Signs Temp 97.8 F 01/24/23 16:28 Pulse 61 01/24/23 16:28 Resp 18 01/24/23 16:28 BP 143/82 01/24/23 16:28 Pulse Ox 98 01/24/23 16:28 FiO2 Intake & Output 01/23/23 01/24/23 01/24/23 18:59 06:59 18:59 Intake Total 480 62.56 838 Balance 480 62.56 838 Weight 72.575 kg Intake: Intake, IV Titration 62.56 Amount Heparin Sod,Pork in 0.45% 62.56 NaCl 25,000 unit In 0.45 % NaCl 1 250ml.bag @ 12 UNITS/KG/HR 8.709 mls/hr IV .Q24H [facility] Rx#: [id number] Oral 480 838 Other: Voiding Method Toilet Toilet Urinal Urinal # Voids 1 1 - Labs CBC & Chem 7: 01/23/23 11:29 01/23/23 11:29 Labs: Abnormal Lab Results - Last 24 Hours (Table) 01/23/23 01/24/23 Range/Units 18:54 02:50 APTT 70.3 H 50.6 H (22.0-30.0) sec
--- NOTE | 2023-01-24 18:28 | CA ---
Transthoracic Echo Report Name: Mike Keller Age: 82 Gender: M : 1940 Exam Date: 01/24/2023 12:46 Exam Location: [facility] Ht (in): 71 Wt (lb): 170 Ordering Physician: Betzy Trujillo Attending/Referring Phys: [id number], Ronnie Radio Station Audio Engineer Charbel Jiang Procedure CPT: Indications: LVF Cardiac Hx: Technical Quality: Fair Contrast 1: Total Dose (mL): Contrast 2: Total Dose (mL): MEASUREMENTS (Male / Female) Normal Values 2D ECHO LV Diastolic Diameter PLAX 4.0 cm 4.2 - 5.9 / 3.9 - 5.3 cm LV Systolic Diameter PLAX 2.7 cm LV Fractional Shortening PLAX 31.8 % IVS Diastolic Thickness 1.2 cm 0.6 - 1.0 / 0.6 - 0.9 cm IVS Systolic Thickness 1.5 cm LVPW Diastolic Thickness 1.2 cm 0.6 - 1.0 / 0.6 - 0.9 cm LVPW Systolic Thickness 1.5 cm LV Relative Wall Thickness 0.6 RV Internal Dim ED PLAX 2.7 cm LVOT Diameter 2.2 cm LA Systolic Diameter LX 3.4 cm 3.0 - 4.0 / 2.7 - 3.8 cm LV Diastolic Volume MOD 4C 61.3 cm??? LV Systolic Volume MOD 4C 25.7 cm??? LV Ejection Fraction MOD 4C 58.0 % LV Stroke Volume MOD 4C 35.6 cm??? LV Diastolic Length 4C 7.0 cm LV Systolic Length 4C 6.1 cm Ascending Aorta Diameter 2.9 cm M-MODE LV Diastolic Diameter MM 4.4 cm 4.2 - 5.9 / 3.9 - 5.3 cm LV Diastolic Volume MM Teich 85.4 cm??? LV Systolic Diameter MM 2.3 cm LV Systolic Volume MM Teich 18.3 cm??? LV Fractional Shortening MM 46.9 % 25 - 43 / 27 - 45 % LV Ejection Fraction MM Teich 78.6 % LV Stroke Volume MM Teich 67.1 cm??? IVS Diastolic Thickness MM 0.9 cm 0.6 - 1.0 / 0.6 - 0.9 cm LVPW Diastolic Thickness MM 1.2 cm 0.6 - 1.0 / 0.6 - 0.9 cm LVPW Systolic Thickness MM 1.7 cm LV Relative Wall Thickness MM 0.5 0.24 - 0.42 / 0.22 - 0.42 LVMW Fractional Shortening MM 18.3 % 14 - 22 / 15 - 23 % LV Mass MM 146.9 g 88 - 224 / 67 - 162 g LV Mass Index MM 74.8 g/m??? 49 - 115 / 43 - 95 g/m??? RV Diastolic Diameter MM 2.1 cm Aortic Root Diameter MM 3.0 cm LA Systolic Diameter MM 3.4 cm LA Ao Ratio MM 1.1 AV Cusp Separation MM 1.9 cm DOPPLER MV E' Velocity 8.8 cm/s FINDINGS Left Ventricle Left ventricular ejection fraction is estimated at 50-55%. Borderline left ventricular hypertrophy. Right Ventricle Normal right ventricular size and function. Right Atrium Normal right atrial size. Left Atrium Normal left atrial size. Mitral Valve Structurally normal mitral valve. Aortic Valve Trileaflet aortic valve. Tricuspid Valve Structurally normal tricuspid valve. Pulmonic Valve Structurally normal pulmonic valve. Pericardium Normal pericardium. No pericardial effusion. Aorta Normal size aortic root and proximal ascending aorta. CONCLUSIONS Normal LV systolic function Previewed by: Dr. David Newman MD (Electronically Signed) Final Date: 24 January 2023 18:27
--- NOTE | 2023-01-24 20:21 | PN ---
PROGRESS NOTE DATE OF SERVICE: 01/24/2023 CHIEF COMPLAINT: Rapid heart beating. HISTORY OF PRESENT ILLNESS: This gentleman is feeling fine today. He is back in sinus rhythm and his heart rate is normal. He denies any chest pain, fever, chills, etc. PHYSICAL EXAMINATION: CHEST: Clear. CARDIAC: Normal in sinus rhythm. No murmurs or extra sounds. ABDOMEN: Soft and nontender. EXTREMITIES: Normal. IMPRESSION: 1. Atrial fibrillation. 2. Carotid occlusive disease. PLAN: 1. Continue to monitor his heart rhythm. 2. Echocardiogram. 3. Thyroid function studies. MMODL / IJN: [id number] /
[2023-01-25 08:16] VITALS: BP 137/73; PULSE 59; RESP 16; TEMP 98.1
--- NOTE | 2023-01-25 08:43 | P.DS ---
Providers Date of admission: 01/23/23 13:04 Expected date of discharge: 01/25/23 Attending physician: Kleber Quigley MD Consults: 01/23/23 13:02 Consult Physician Urgent Consulting Provider: [facility] Consult Reason/Comments: A. fib with rapid ventricular response Do you want consulting provider notified?: Yes Primary care physician: Jeramy Oh MD Hospital Course: Discharge Diagnosis: Newly discovered atrial fibrillation with rapid ventricular response, CHADSVASc 3 Hypertension Cervical stenosis with planned cervical fusion February 17 Hospital Course: Patient is an 82-year-old male with hypertension, hearing disorder, and lung nodule who presented to the emergency department via EMS from urgent care where he had presented due to palpitations. An EKG had been performed which showed new onset A. fib. On arrival to the ER he was found be tachycardic with a pulse of 126. EKG confirmed atrial fibrillation with rapid ventricular response at 126 bpm. Initial laboratory analysis reviewed with normal potassium, magnesium, TSH, and troponin. Chest x-ray unrevealing. Patient was given a Cardizem bolus and started on Cardizem drip. Arrangements were made for admission to the telemetry unit. Cardiology was consulted. His Cardizem drip was uptitrated and then he converted to sinus rhythm. He was transitioned to oral metoprolol and Eliquis. Echo showed EF 50-55% and no significant valvular dysfunction. He maintained normal sinus rhythm and was determined stable for discharge. Patient seen and examined at bedside. No chest pain, SOB, or dizziness. We discussed that he will need to follow [facility] for pre-op clearance and that surgery might need to be delayed. We discussed that he needs to take his medications as prescribed. Vital signs reviewed and stable. General: nontoxic, no distress, appears at stated age Derm: warm, dry Head: atraumatic, normocephalic, symmetric Eyes: EOMI, no lid lag, anicteric sclera Mouth: no lip lesion, mucus membranes moist Cardiovascular: S1S2 reg, no murmur, positive posterior tibial pulse bilateral, Lungs: CTA bilateral, no rhonchi, no rales , no accessory muscle use Abdominal: soft, nontender to palpation, no guarding, no appreciable organomegaly Ext: no gross muscle atrophy, no edema, no contractures Neuro: CN II-XI grossly intact, no focal neuro deficits Psych: Alert, oriented, appropriate affect A total of 33 minutes of time were spent preparing this complex discharge summary. Patient was discharged on 01/25/23. This dictation was prepared using [employer] voice recognition software. Though every attempt is made to correct errors during during dictation some may still exist. Patient Condition at Discharge: Stable Plan - Discharge Summary Discharge Rx Participant: No New Discharge Prescriptions: New Apixaban [Eliquis] 5 mg PO BID #60 tab Metoprolol Succinate (ER) [Toprol XL] 50 mg PO DAILY #30 tab Discontinued atenoloL [Tenormin] 50 mg PO HS Discharge Medication List Apixaban [Eliquis] 5 mg PO BID #60 tab 01/24/23 [Rx] Metoprolol Succinate (ER) [Toprol XL] 50 mg PO DAILY #30 tab 01/25/23 [Rx] Follow up Appointment(s)/Referral(s): Rosemary Feng MD [STAFF PHYSICIAN] - 1 Week Jeramy Oh MD [Primary Care Provider] - 1-2 days Activity/Diet/Wound Care/Special Instructions: Activity: As tolerated Diet: heart healthy Special Instructions: Eliquis copay is $45/month. Stop taking atenolol. Thank you for trusting us with your care, we wish you well on your journey to better health. Discharge Disposition: HOME SELF-CARE
[2023-01-25] MEDS: METOPROLOL SUCCINATE (ER) 50 MG TAB.ER.24H PO SCH (09:49)
[2023-01-25] MEDS: APIXABAN 5 MG TAB PO SCH (09:49)
--- NOTE | 2023-01-25 11:25 | P.PN ---
Subjective Progress Note Date: 01/25/23 History of present illness: This is 82-year-old male patient presented to the hospital with rapid heartbeat sensation and found to be in paroxysmal atrial fibrillation and converted to sinus rhythm. Patient was started on metipranolol so sedate 50 mg daily and atenolol was discontinued and he was started on eliquis. Patient had a stress test done at [facility] as well as echocardiogram which we have been waiting for the results. Neither were available so a limited echocardiogram was repeated which revealed normal LV systolic function. Patient has surgery scheduled with Dr. Quintana and advised that he should follow-up with [facility] or his family doctor/improvement engineer for the results of his stress test prior to the procedure. Also the Dr. Quintana will need to be notifie d of the new A. fib and patient will need to stop anticoagulation most likely 3 days prior to the surgery. Physical examination: Gen: This is an 82-year-old male. He appears to be in no acute distress VS: reviewed HEENT: Head is atraumatic, normocephalic. Pupils equal, round. Sclerae is anicteric. NECK: Supple. No JVD. . LUNGS: Clear to auscultation. No wheezes or rhonchi. No intercostal retractions. HEART: Regular rate and rhythm. Short systolic murmur. ABDOMEN: Soft No tenderness. EXTREMITIES: No pedal edema. No calf tenderness. NEUROLOGICAL: Patient is awake, alert and oriented x3. Assessment: New onset paroxysmal atrial fibrillation, converted to sinus rhythm Hypertension Spinal surgery planned with Dr. Quintana in February Plan: Patient is cleared for discharge home to continue on eliquis and metoprolol succinate. Patient to follow-up with his improvement engineer/family doctor for results of outpatient stress testing. Nurse practitioner note has been reviewed, I agree with documented findings and plan of care. Patient was seen and examined. Objective - Vital Signs Vital signs: Vital Signs Temp 98.1 F 01/25/23 08:00 Pulse 59 L 01/25/23 08:00 Resp 16 01/25/23 08:00 BP 137/73 01/25/23 08:00 Pulse Ox 99 01/25/23 08:00 FiO2 Intake & Output 01/24/23 01/25/23 01/25/23 18:59 06:59 18:59 Intake Total 838 180 Balance 838 180 Intake: Oral 838 180 Other: Voiding Method Toilet Toilet Urinal # Voids 1 1 - Labs CBC & Chem 7: 01/23/23 11:29 01/23/23 11:29
--- NOTE | 2023-01-25 21:30 | HP ---
HISTORY AND PHYSICAL CHIEF COMPLAINT: Rapid heart beating. HISTORY OF PRESENT ILLNESS: This gentleman was driving somewhere when he noticed that his heart was beating quite fast and he turned around and came to the emergency room, where he was found to be in atrial fibrillation with a ventricular response rate of around 130 beats per minute. He had no chest pain, diaphoresis, shortness of breath. He is scheduled to have a right carotid endarterectomy next month. He denied any neurologic symptoms, amaurosis fugax, etc. He has otherwise been healthy. He only takes a beta lawrence. REVIEW OF SYSTEMS: He has had no other symptoms. He has had no chest pain, palpitations, dizziness, lightheadedness, abdominal pain, nausea, vomiting, melena, hematochezia, jaundice, hepatitis, cirrhosis, hematuria, frequency, urgency, renal failure, nocturia, incontinence, diabetes, etc. Past medical history, family history, personal and social histories are otherwise unremarkable or noncontributory. He is not allergic to medication. He is only on atenolol. The only surgery he has had in the past is TIA. He drinks about 2 drinks a day and does not smoke. He is a retired junior accountant bookkeeper. PHYSICAL EXAMINATION: VITAL SIGNS: Pulse is 130 and irregularly irregular. Blood pressure is 125/78. Respirations were 34 and he is afebrile. GENERAL: He appeared to be well developed, well nourished, no acute distress. SKIN: Color is normal. Skin is warm, dry. LYMPHATICS: Lymph nodes are not enlarged. HEAD, EARS, EYES, NOSE, MOUTH AND THROAT: Normal. NECK: Neck veins are not distended. Thyroid is not enlarged. CHEST: Clear. CARDIAC: Normal except for rapid heart rate. ABDOMEN: Soft, nontender. EXTREMITIES: Normal. NEUROLOGIC: Intact. IMPRESSION: 1. New onset atrial fibrillation with rapid ventricular rate. 2. Left carotid occlusive disease. PLAN: 1. Bedrest. 2. IV fluids. 3. Anticoagulate. 4. Cardiology consult. MMODL / IJN: [id number] /
--- NOTE | 2023-01-25 22:44 | DS ---
DISCHARGE SUMMARY CHIEF COMPLAINT: New-onset atrial fibrillation with RVR. HISTORY OF PRESENT ILLNESS AND PHYSICAL EXAMINATION: Details of this man's history and physical can be found in the initial workup. LABORATORY STUDIES: While he was in the hospital, he had laboratory studies, details of which can be found in the laboratory section of his chart. COURSE IN THE HOSPITAL: After admission, he was placed on bedrest and started on intravenous fluids, and he converted to normal sinus rhythm. He was seen by Cardiology. He was stabilized. It was felt that he could be discharged on the , and he will go home on his usual beta- lawrence in addition to apixaban 5 mg twice a day. He will be followed up by Cardiology, me, and his PCP. FINAL DIAGNOSES: 1. Atrial fibrillation with rapid ventricular response. 2. Carotid occlusive disease. OPERATIONS: None. CONSULTATION: Cardiology. CONDITION: He is improved. MMANGELINE / DARIA: [id number] /
== END 2023-01-25 12:01 | disposition home or self-care (01) | DRG 310 ==
LOC: EC 11:15 → 3SCARD 13:04
PROVIDERS: ADMIT Family Medicine; ATTEND Student in an Organized Health Care Education/Training Program
DX: I48.0 Paroxysmal atrial fibrillation (principal); I10 Essential (primary) hypertension; M48.02 Spinal stenosis, cervical region; I65.22 Occlusion and stenosis of left carotid artery; R91.1 Solitary pulmonary nodule; H91.90 Unspecified hearing loss, unspecified ear; Z97.4 Presence of external hearing-aid; Z79.899 Other long term (current) drug therapy; Z87.891 Personal history of nicotine dependence
CPT/HCPCS: 36415; 71046; 80053; 80061; 83735; 84443; 84484; 85025; 85610; 85730; 93005; 93308; 94760; 96361; 96365; 96368; 96375; 99291

== ENCOUNTER 2023-01-29 21:56 | Emergency (ER) | payer MEDICARE ==
--- NOTE | 2023-01-29 22:22 | ED ---
General Adult HPI - General Stated complaint: Lt arm pain Time Seen by Provider: 01/29/23 22:09 - History of Present Illness Initial comments: This is an 82-year-old male with a past medical history including recently diagnosed atrial fibrillation on Eliquis presents emergency department for left arm pain. The patient was discharged on 01/23/2023nd was instructed that if he had any pain in the left arm to come back to the emergency department. The pa susie stated that he started to have some aching in the left shoulder today and stated that because of the literature that he was reading and his instructions he came to the emergency department for evaluation. The patient denied any active chest pain or shortness of breath. The patient was resting in bed comfortably. The patient did state he took all his medications appropriately. - Related Data Previous Rx's Medication Instructions Recorded Apixaban [Eliquis] 5 mg PO BID #60 tab 01/24/23 Metoprolol Succinate (ER) [Toprol 50 mg PO DAILY #30 tab 01/25/23 XL] Allergies Allergy/AdvReac Type Severity Reaction Status Date / Time No Known Allergies Allergy Verified 01/29/23 22:23 Review of Systems ROS Statement: Those systems with pertinent positive or pertinent negative responses have been documented in the HPI. ROS Other: All systems not noted in ROS Statement are negative. Past Medical History Past Medical History: Hearing Disorder / Deafness, Hypertension Additional Past Medical History / Comment(s): ABDELRAHMAN HEARING AIDS. Cervical Stenosis History of Any Multi-Drug Resistant Organisms: None Reported Past Surgical History: Tonsillectomy Additional Past Surgical History / Comment(s): COLONOSCOPY Past Anesthesia/Blood Transfusion Reactions: No Reported Reaction Additional Past Anesthesia/Blood Transfusion Reaction / Comment(s): PTS UNSURE OF FAMILY HX. Past Psychological History: No Psychological Hx Reported Smoking Status: Former smoker (quit in the 1970s ) Past Alcohol Use History: Daily (birgit 2 drinks dialy, but none in the last 40 days ), Occasional Past Drug Use History: None Reported - Past Family History Mother History Unknown: Yes Family Medical History: No Reported History General Exam Limitations: no limitations General appearance: alert, in no apparent distress Head exam: Present: atraumatic, normocephalic, normal inspection Eye exam: Present: normal appearance, PERRL Pupils: Present: normal accommodation ENT exam: Present: normal exam, normal oropharynx, mucous membranes moist Neck exam: Present: normal inspection, full ROM Respiratory exam: Present: normal lung sounds bilaterally Cardiovascular Exam: Present: regular rate, normal rhythm, normal heart sounds GI/Abdominal exam: Present: soft, normal bowel sounds Extremities exam: Present: normal inspection, full ROM, normal capillary refill Back exam: Present: normal inspection, full ROM Neurological exam: Present: alert, oriented X3, CN II-XII intact Psychiatric exam: Present: normal affect, normal mood Skin exam: Present: warm, dry Course Vital Signs 01/29/23 01/29/23 01/29/23 22:00 23:00 23:09 Temperature 97.8 F Pulse Rate 54 L 50 L Respiratory 16 12 Rate Blood Pressure 159/78 159/78 133/74 O2 Sat by Pulse 100 98 Oximetry 01/29/23 23:30 Temperature 98.3 F Pulse Rate 79 Respiratory 16 Rate Blood Pressure 132/78 O2 Sat by Pulse 98 Oximetry EKG Findings - EKG Comments: EKG Findings:: An EKG was obtained and was interpreted by myselfshowing a rate of 57, [place] interval of 208, QRS duration 135 and QTC of 394. This EKG showed a sinus bradycardia with no ST segment elevation or depression noted. Medical Decision Making - Medical Decision Making Was pt. sent in by a medical professional or institution (, PA, LEGAL ADMINISTRATIVE ASSISTANT, urgent care, hospital, or intermediate...) When possible be specific @ -No Did you speak to anyone other than the patient for history (EMS, parent, family, police, friend...)? What history was obtained from this source @ -No Did you review nursing and triage notes (agree or disagree)? Why? @ -I reviewed and agree with nursing and triage notes Were old charts reviewed (outside hosp., previous admission, EMS record, old EKG, old radiological studies, urgent care reports/EKG's, intermediate records)? Report findings @ -No old charts were reviewed Differential Diagnosis (chest pain, altered mental status, abdominal pain women, abdominal pain men, vaginal bleeding, weakness, fever, dyspnea, syncope, headache, dizziness, GI bleed, back pain, seizure, CVA, palpatations, mental health)? @ -ACS, muscle strain, muscle soreness EKG interpreted by me (3pts min.). @ -As above X-rays interpreted by me (1pt min.). @ -Chest x-ray was obtained and was interpreted by myself showing no acute process. CT interpreted by me (1pt min.). @ -None done U/S interpreted by me (1pt. min.). @ -None done What testing was considered but not performed or refused? (CT, X-rays, U/S, labs)? Why? @ -None What meds were considered but not given or refused? Why? @ -None Did you discuss the management of the patient with other professionals (professionals i.e. , PA, LEGAL ADMINISTRATIVE ASSISTANT, lab, RT, psych nurse, mental health social worker, histological illustrator, teacher, police commanding officer, manager case management)? Give summary @ -No Was smoking cessation discussed for >3mins.? @ -No Was critical care preformed (if so, how long)? @ -No Were there social determinants of health that impacted care today? How? (Homelessness, low income, unemployed, alcoholism, drug addiction, transportation, low edu. Level, literacy, decrease access to med. care, [place] [facility], rehab)? @ -No Was there de-escalation of care discussed even if they declined (Discuss DNR or withdrawal of care, Hospice)? DNR status @ -No What co-morbidities impacted this encounter? (DM, HTN, Smoking, COPD, CAD, Cancer, CVA, ARF, Chemo, Hep., AIDS, mental health diagnosis, sleep apnea, morbid obesity)? @ -Atrial fibrillation Was patient admitted / discharged? Hospital course, mention meds given and route, prescriptions, significant lab abnormalities, going to OR and other pertinent info. @ -The patient was seen and evaluated emergency department. Physical exam, the patient was resting in bed without any acute distress. Vital signs admission were stable. All laboratory workup and imaging was negative. An known reevaluation the patient stated that he had no further soreness in the arm. The patient was stable for discharge home. The patient was also advised to follow- up with the milk runner as previously scheduled next week. The patient was initially offered observation as he felt as if he was having continued pain and discomfort however the patient stated that his symptoms had improved and he felt comfortable with going home. The patient had all of his questions answered appropriately and was discharged home in stable condition. Undiagnosed new problem with uncertain prognosis? @ -No Drug Therapy requiring intensive monitoring for toxicity (Heparin, Nitro, Insulin, Cardizem)? @ -No Were any procedures done? @ -No Diagnosis/symptom? @ -Left arm soreness, NOS, resolved Acute, or Chronic, or Acute on Chronic? @ -Acute Uncomplicated (without systemic symptoms) or Complicated (systemic symptoms)? @ -Uncomplicated Side effects of treatment? @ -No Exacerbation, Progression, or Severe Exacerbation? @ -No Poses a threat to life or bodily function? How? (Chest pain, [place], [place], pneumonia, PE, COPD, DKA, ARF, appy, cholecystitis, CVA, Diverticulitis, Homicidal, Suicidal, threat to staff... and all critical care pts) @ -No - Lab Data Result diagrams: 01/29/23 22:20 01/29/23 22:20 Lab Results 01/29/23 01/29/23 01/29/23 Range/Units 22:20 22:20 22:20 WBC 4.5 (3.8-10.6) k/uL RBC 4.19 L (4.30-5.90) m/uL Hgb 13.5 (13.0-17.5) gm/dL Hct 39.3 (39.0-53.0) % MCV 93.9 (80.0-100.0) fL MCH 32.1 (25.0-35.0) pg MCHC 34.2 (31.0-37.0) g/dL RDW 12.1 (11.5-15.5) % Plt Count 156 (150-450) k/uL MPV 8.1 Neutrophils % 37 % Lymphocytes % 47 % Monocytes % 7 % Eosinophils % 6 % Basophils % 1 % Neutrophils # 1.7 (1.3-7.7) k/uL Lymphocytes # 2.1 (1.0-4.8) k/uL Monocytes # 0.3 (0-1.0) k/uL Eosinophils # 0.3 (0-0.7) k/uL Basophils # 0.0 (0-0.2) k/uL Sodium 140 (137-145) mmol/L Potassium 4.7 (3.5-5.1) mmol/L Chloride 106 (98-107) mmol/L Carbon Dioxide 29 (22-30) mmol/L Anion Gap 5 mmol/L BUN 17 (9-20) mg/dL Creatinine 1.05 (0.66-1.25) mg/dL Est GFR (CKD-EPI)AfAm 77 (>60 ml/min/1.73 sqM) Est GFR (CKD-EPI)NonAf 66 (>60 ml/min/1.73 sqM) Glucose 92 (74-99) mg/dL Calcium 9.1 (8.4-10.2) mg/dL Magnesium 2.4 H (1.6-2.3) mg/dL Total Bilirubin 0.5 (0.2-1.3) mg/dL AST 30 (17-59) U/L ALT 20 (4-49) U/L Alkaline Phosphatase 76 (38-126) U/L Troponin I <0.012 (0.000-0.034) ng/mL Total Protein 7.0 (6.3-8.2) g/dL Albumin 4.1 (3.5-5.0) g/dL Disposition Clinical Impression: Left arm pain Disposition: HOME SELF-CARE Condition: Stable Instructions (If sedation given, give patient instructions): Arm Pain (ED) Is patient prescribed a controlled substance at d/c from ED?: No Referrals: Jeramy Oh MD [Primary Care Provider] - 1-2 days Rosemary Feng MD [STAFF PHYSICIAN] - 02/01/23 Time of Disposition: 23:15
[2023-01-29 22:30] LABS: Basophils % (A) 1 %; Eosinophils # (A) 0.3 k/uL (0-0.7); Eosinophils % (A) 6 %; HCT 39.3 % (39.0-53.0); HGB 13.5 gm/dL (13.0-17.5); Lymphocytes # (A) 2.1 k/uL (1.0-4.8); Lymphocytes % (A) 47 %; MCH 32.1 pg (25.0-35.0); MCHC 34.2 g/dL (31.0-37.0); MCV 93.9 fL (80.0-100.0); Mean Platelet Volume 8.1; Monocytes # (A) 0.3 k/uL (0-1.0); Monocytes % (A) 7 %; Neutrophils # (A) 1.7 k/uL (1.3-7.7); Neutrophils % (A) 37 %; Platelet Count 156 k/uL (150-450); RBC 4.19 m/uL (4.30-5.90); RDW 12.1 % (11.5-15.5); WBC 4.5 k/uL (3.8-10.6)
--- NOTE | 2023-01-29 22:30 | XR ---
EXAMINATION TYPE: XR chest 2V DATE OF EXAM: 01/29/2023 CLINICAL HISTORY: Chest pain. TECHNIQUE: Frontal and lateral views of the chest are obtained. COMPARISON: Chest x-ray 6 days ago and older studies. FINDINGS: There is no suspicious new focal air space opacity, pleural effusion, or pneumothorax seen . The cardiac silhouette size is stable and within normal limits. Multilevel spurring in the thoraci c spine is redemonstrated. Overlying EKG leads again seen. IMPRESSION: No acute process. No significant change from prior.
[2023-01-29 22:46] LABS: Albumin 4.1 g/dL (3.5-5.0); Calcium 9.1 mg/dL (8.4-10.2); Magnesium 2.4 mg/dL (1.6-2.3); Potassium 4.7 mmol/L (3.5-5.1); Total Bilirubin 0.5 mg/dL (0.2-1.3)
[2023-01-29 23:31] VITALS: BP 132/78; PULSE 79; RESP 16; TEMP 98.3
== END 2023-01-29 23:40 | disposition home or self-care (01) ==
LOC: EC 21:56
DX: M79.602 Pain in left arm (principal); I10 Essential (primary) hypertension; I48.91 Unspecified atrial fibrillation; Z87.891 Personal history of nicotine dependence
CPT/HCPCS: 36415; 71046; 80053; 83735; 84484; 85025; 93005; 99284

== ENCOUNTER 2023-02-25 01:30 | Observation (INO) | payer MEDICARE ==
[2023-02-25] MEDS ORDERED: ASPIRIN 81 MG PO STA (01:45)
[2023-02-25] MEDS ORDERED: SODIUM CHLORIDE 0.9% 500 ML 500 ML IV STA (01:45)
[2023-02-25] MEDS: METOPROLOL TARTRATE 5 MG/5 ML VIAL IVP SCH ×2 (01:58→02:05)
--- NOTE | 2023-02-25 02:08 | ED ---
General Adult HPI - General Chief complaint: Arrhythmia/Palpitations Stated complaint: increase heart rate Time Seen by Provider: 02/25/23 01:39 Source: patient, RN notes reviewed, old records reviewed Mode of arrival: wheelchair - History of Present Illness Initial comments: Patient is an 82-year-old male with past medical history remarkable for A. fib diagnosed in January 2023, hypertension who presents emergency Department complaining of elevated heart rate. States he awoke this evening and felt palpitations and a fast heart rate feeling. Denies any chest pain. Denies any nausea or vomiting. Denies any abdominal pain. States he felt a little lightheaded when he noticed it was beating quickly. Denies any episode of diaphoresis. States this is similar to how he presented in January with similar complaints when he was diagnosed with A. fib and is concerned that it may have occurred again. States he has been compliant with his medications, metoprolol as well as Eliquis. Denies any other acute complaints at this time, and presents over concern for his palpitations. Denies fevers, chills, cough, shortness of breath. - Related Data Previous Rx's Medication Instructions Recorded Apixaban [Eliquis] 5 mg PO BID #60 tab 01/24/23 Metoprolol Succinate (ER) [Toprol 50 mg PO DAILY #30 tab 01/25/23 XL] Allergies Allergy/AdvReac Type Severity Reaction Status Date / Time No Known Allergies Allergy Verified 02/25/23 01:38 Review of Systems ROS Statement: Those systems with pertinent positive or pertinent negative responses have been documented in the HPI. Review of Systems: CONST: Denies fever EYES: Denies blurry vision ENT: Denies nasal congestion C/V: Endorses palpitations RESP: Denies shortness of breath GI: Denies abdominal pain : Denies dysuria SKIN: Denies rash. MSK: Denies joint pain. NEURO: Denies headache ROS Other: All systems not noted in ROS Statement are negative. Past Medical History Past Medical History: Hearing Disorder / Deafness, Hypertension Additional Past Medical History / Comment(s): ABDELRAHMAN HEARING AIDS. Cervical Stenosis History of Any Multi-Drug Resistant Organisms: None Reported Past Surgical History: Tonsillectomy Additional Past Surgical History / Comment(s): COLONOSCOPY Past Anesthesia/Blood Transfusion Reactions: No Reported Reaction Additional Past Anesthesia/Blood Transfusion Reaction / Comment(s): PTS UNSURE OF FAMILY HX. Past Psychological History: No Psychological Hx Reported Smoking Status: Former smoker Past Alcohol Use History: Daily, Occasional Past Drug Use History: None Reported - Past Family History Mother History Unknown: Yes Family Medical History: No Reported History General Exam - General Exam Comments Initial Comments: General: Appears in no acute distress. HEAD: Normal with no signs of head trauma. EYES: EOMI ENT: Hearing grossly intact, normal oropharynx. RESPIRATORY: Clear breath sounds bilaterally. No wheezes, rales, or rhonchi. C/V: Irregular rate and rhythm.. S1 and S2 auscultated, no edema, peripheral pulses 2+ and intact throughout ABD: Abd is soft, nontender, nondistended EXT: Normal range of motion, no obvious deformity SKIN: No rashes or lesions observed on exposed skin. NEURO: Alert and oriented 4. Course Vital Signs 02/25/23 02/25/23 02/25/23 01:36 01:52 01:59 Temperature 97.7 F Pulse Rate 128 H 118 H Pulse Rate [ 135 H Talent Recruiter ] Respiratory 18 18 Rate Blood Pressure 125/81 138/92 O2 Sat by Pulse 97 98 Oximetry 02/25/23 02/25/23 02/25/23 02:02 02:03 02:05 Temperature Pulse Rate 98 97 107 H Pulse Rate [ Talent Recruiter ] Respiratory 5 L 18 17 Rate Blood Pressure 138/92 138/92 123/96 O2 Sat by Pulse 97 95 96 Oximetry 02/25/23 02/25/23 02/25/23 02:08 02:15 02:30 Temperature Pulse Rate 90 97 86 Pulse Rate [ Talent Recruiter ] Respiratory 17 17 17 Rate Blood Pressure 120/85 125/84 125/97 O2 Sat by Pulse 96 97 98 Oximetry 02/25/23 02:47 Temperature Pulse Rate 90 Pulse Rate [ Talent Recruiter ] Respiratory 17 Rate Blood Pressure 121/88 O2 Sat by Pulse 99 Oximetry Medical Decision Making - Medical Decision Making Was pt. sent in by a medical professional or institution (, PA, FAST BRIM POUNCER, urgent care, hospital, or [place] [facility]...) When possible be specific @ -No Did you speak to anyone other than the patient for history (EMS, parent, family, police, friend...)? What history was obtained from this source @ -No Did you review nursing and triage notes (agree or disagree)? Why? @ -I reviewed and agree with nursing and triage notes Were old charts reviewed (outside hosp., previous admission, EMS record, old E KG, old radiological studies, urgent care reports/EKG's, [place] [facility] records)? Report findings @ -Old charts reviewed from January 2023 Differential Diagnosis (chest pain, altered mental status, abdominal pain women, abdominal pain men, vaginal bleeding, weakness, fever, dyspnea, syncope, headache, dizziness, GI bleed, back pain, seizure, CVA, palpatations, mental health, musculoskeletal)? @ -Differential Palpitations Ventricular arrhythmias, atrial arrhythmias, myocardial infarction, anemia, thyrotoxicosis, electrolyte imbalance, hypokalemia, pulmonary embolism, pulmonary disease, drugs, alcohol, anxiety, stress.... This is not meant to be an all-inclusive list. EKG interpreted by me (3pts min.). @ -As above X-rays interpreted by me (1pt min.). @ -Chest x-ray shows no obvious acute cardiopulmonary process. CT interpreted by me (1pt min.). @ -None done U/S interpreted by me (1pt. min.). @ -None done What testing was considered but not performed or refused? (CT, X-rays, U/S, labs)? Why? @ -None What meds were considered but not given or refused? Why? @ -None Did you discuss the management of the patient with other professionals (professionals i.e. , PA, FAST BRIM POUNCER, lab, RT, psych nurse, social welfare clerk, warehouse team leader, teacher, [place] police officer, watch case polisher)? Give summary @ -No Was smoking cessation discussed for >3mins.? @ -No Was critical care preformed (if so, how long)? @ -No Were there social determinants of health that impacted care today? How? (Homelessness, low income, unemployed, alcoholism, drug addiction, transportation, low edu. Level, literacy, decrease access to med. care, skilled nursing, rehab)? @ -No Was there de-escalation of care discussed even if they declined (Discuss DNR or withdrawal of care, Hospice)? DNR status @ -No What co-morbidities impacted this encounter? (DM, HTN, Smoking, COPD, CAD, Cancer, CVA, ARF, Chemo, Hep., AIDS, mental health diagnosis, sleep apnea, morbid obesity)? @ -Atrial fibrillation Was patient admitted / discharged? Hospital course, mention meds given and route, prescriptions, significant lab abnormalities, going to OR and other pertinent info. @ -Based on the patient's presentation and physical exam, I'm concerned for A. fib with RVR. Patient has a screening EKG which does represent this. Is otherwise resting comfortably in no acute distress. We will obtain cardiopulmonary labs. He will be given 324 mg of aspirin. He will be administered IV metoprolol push to attempt to obtain rate control as he is on metoprolol baseline. States he has been compliant with medications including blood thinner. He was in agreement with this plan. Than acceptable limits except for the patient's tachycardia. EKG shows A. fib with RVR. Following 2 doses of 2.5 mg IV metoprolol, patient's rate was controlled. Chest x-ray showed no obvious acute process. Troponin I undetectable. Labs otherwise unremarkable. Chest x-ray shows no obvious acute process. On reevaluation, patient remains rate controlled. We did discuss his workup. I would like to keep him and have cardiology evaluate him. This really can observe and see if he goes back into A. fib with RVR. He was in agreement with this plan. I will provide him with a dose of his metoprolol orally early this morning. He was in agreement this plan. I spoke with the admitting team, Dr. Mayfield who accepted the patient. Cardiology consulted. Undiagnosed new problem with uncertain prognosis? @ -No Drug Therapy requiring intensive monitoring for toxicity (Heparin, Nitro, Insulin, Cardizem)? @ -No Were any procedures done? @ -No Diagnosis/symptom? @ -A. fib with RVR Acute, or Chronic, or Acute on Chronic? @ -Acute on chronic Uncomplicated (without systemic symptoms) or Complicated (systemic symptoms)? @ -Uncomplicated Side effects of treatment? @ -No Exacerbation, Progression, or Severe Exacerbation? @ -No Poses a threat to life or bodily function? How? (Chest pain, [place], [place], pneumonia, PE, COPD, DKA, ARF, appy, cholecystitis, CVA, Diverticulitis, Homicidal, Suicidal, threat to staff... and all critical care pts) @ -No - Lab Data Result diagrams: 02/25/23 01:51 02/25/23 01:51 Lab Results 02/25/23 02/25/23 02/25/23 Range/Units 01:51 01:51 01:51 WBC 5.4 (3.8-10.6) k/uL RBC 4.57 (4.30-5.90) m/uL Hgb 14.5 (13.0-17.5) gm/dL Hct 43.2 (39.0-53.0) % MCV 94.5 (80.0-100.0) fL MCH 31.8 (25.0-35.0) pg MCHC 33.6 (31.0-37.0) g/dL RDW 12.4 (11.5-15.5) % Plt Count 183 (150-450) k/uL MPV 8.4 Neutrophils % 43 % Lymphocytes % 41 % Monocytes % 8 % Eosinophils % 5 % Basophils % 1 % Neutrophils # 2.3 (1.3-7.7) k/uL Lymphocytes # 2.2 (1.0-4.8) k/uL Monocytes # 0.4 (0-1.0) k/uL Eosinophils # 0.3 (0-0.7) k/uL Basophils # 0.0 (0-0.2) k/uL PT 11.3 (9.0-12.0) sec INR 1.1 (<1.2) APTT 26.3 (22.0-30.0) sec Sodium (137-145) mmol/L Potassium (3.5-5.1) mmol/L Chloride (98-107) mmol/L Carbon Dioxide (22-30) mmol/L Anion Gap mmol/L BUN (9-20) mg/dL Creatinine (0.66-1.25) mg/dL Est GFR (CKD-EPI)AfAm (>60 ml/min/1.73 sqM) Est GFR (CKD-EPI)NonAf (>60 ml/min/1.73 sqM) Glucose (74-99) mg/dL Calcium (8.4-10.2) mg/dL Magnesium (1.6-2.3) mg/dL Total Bilirubin (0.2-1.3) mg/dL AST (17-59) U/L ALT (4-49) U/L Alkaline Phosphatase (38-126) U/L Troponin I (0.000-0.034) ng/mL Total Protein (6.3-8.2) g/dL Albumin (3.5-5.0) g/dL Urine Color Light Yellow Urine Appearance Clear (Clear) Urine pH 6.5 (5.0-8.0) Ur Specific Keavy 1.009 (1.001-1.035) Urine Protein Negative (Negative) Urine Glucose (UA) Negative (Negative) Urine Ketones 1+ H (Negative) Urine Blood Trace H (Negative) Urine Nitrite Negative (Negative) Urine Bilirubin Negative (Negative) Urine Urobilinogen <2.0 (<2.0) mg/dL Ur Leukocyte Esterase Negative (Negative) Urine RBC 1 (0-5) /hpf Urine WBC 1 (0-5) /hpf Urine Mucus Rare H (None) /hpf 02/25/23 02/25/23 Range/Units 01:51 01:51 WBC (3.8-10.6) k/uL RBC (4.30-5.90) m/uL Hgb (13.0-17.5) gm/dL Hct (39.0-53.0) % MCV (80.0-100.0) fL MCH (25.0-35.0) pg MCHC (31.0-37.0) g/dL RDW (11.5-15.5) % Plt Count (150-450) k/uL MPV Neutrophils % % Lymphocytes % % Monocytes % % Eosinophils % % Basophils % % Neutrophils # (1.3-7.7) k/uL Lymphocytes # (1.0-4.8) k/uL Monocytes # (0-1.0) k/uL Eosinophils # (0-0.7) k/uL Basophils # (0-0.2) k/uL PT (9.0-12.0) sec INR (<1.2) APTT (22.0-30.0) sec Sodium 139 (137-145) mmol/L Potassium 3.9 (3.5-5.1) mmol/L Chloride 103 (98-107) mmol/L Carbon Dioxide 25 (22-30) mmol/L Anion Gap 11 mmol/L BUN 13 (9-20) mg/dL Creatinine 1.03 (0.66-1.25) mg/dL Est GFR (CKD-EPI)AfAm 78 (>60 ml/min/1.73 sqM) Est GFR (CKD-EPI)NonAf 68 (>60 ml/min/1.73 sqM) Glucose 93 (74-99) mg/dL Calcium 9.3 (8.4-10.2) mg/dL Magnesium 2.2 (1.6-2.3) mg/dL Total Bilirubin 1.1 (0.2-1.3) mg/dL AST 31 (17-59) U/L ALT 20 (4-49) U/L Alkaline Phosphatase 72 (38-126) U/L Troponin I <0.012 (0.000-0.034) ng/mL Total Protein 7.3 (6.3-8.2) g/dL Albumin 4.3 (3.5-5.0) g/dL Urine Color Urine Appearance (Clear) Urine pH (5.0-8.0) Ur Specific Keavy (1.001-1.035) Urine Protein (Negative) Urine Glucose (UA) (Negative) Urine Ketones (Negative) Urine Blood (Negative) Urine Nitrite (Negative) Urine Bilirubin (Negative) Urine Urobilinogen (<2.0) mg/dL Ur Leukocyte Esterase (Negative) Urine RBC (0-5) /hpf Urine WBC (0-5) /hpf Urine Mucus (None) /hpf - EKG Data -: EKG Interpreted by Me EKG Comments: 12-lead Electrocardiogram Interpretation Note EKG was reviewed and interpreted by myself. 12-lead ECG performed at 0141 is interpreted by me as revealing A. fib with RVR at a rate of 137 beats per minute. Aubrey is normal. QRS duration is 90 ms, QTc is 375 ms.. There were no ST or T wave abnormalities to suggest myocardial ischemia or injury. R wave progression across the precordium was satisfactory. By my interpretation this EKG is non-diagnostic for acute ischemia. Disposition Clinical Impression: Atrial fibrillation with rapid ventricular response Disposition: ADMITTED IP TO THIS HOSP Condition: Stable Referrals: Jeramy Oh MD [Primary Care Provider] - 1-2 days Time of Disposition: 03:21
[2023-02-25 02:38] LABS: Basophils % (A) 1 %; Eosinophils # (A) 0.3 k/uL (0-0.7); Eosinophils % (A) 5 %; HCT 43.2 % (39.0-53.0); HGB 14.5 gm/dL (13.0-17.5); Lymphocytes # (A) 2.2 k/uL (1.0-4.8); Lymphocytes % (A) 41 %; MCH 31.8 pg (25.0-35.0); MCHC 33.6 g/dL (31.0-37.0); MCV 94.5 fL (80.0-100.0); Mean Platelet Volume 8.4; Monocytes # (A) 0.4 k/uL (0-1.0); Monocytes % (A) 8 %; Neutrophils # (A) 2.3 k/uL (1.3-7.7); Neutrophils % (A) 43 %; Platelet Count 183 k/uL (150-450); RBC 4.57 m/uL (4.30-5.90); RDW 12.4 % (11.5-15.5); WBC 5.4 k/uL (3.8-10.6)
[2023-02-25 02:49] LABS: Albumin 4.3 g/dL (3.5-5.0); Calcium 9.3 mg/dL (8.4-10.2); INR 1.1 (<1.2); Magnesium 2.2 mg/dL (1.6-2.3); Partial Thromboplastin Time 26.3 sec (22.0-30.0); Potassium 3.9 mmol/L (3.5-5.1); Prothrombin Time 11.3 sec (9.0-12.0); Total Bilirubin 1.1 mg/dL (0.2-1.3); Total Protein 7.3 g/dL (6.3-8.2)
[2023-02-25 02:51] LABS: Appearance,Urine Clear (Clear); Bilirubin,Urine Negative (Negative); Blood,Urine Trace (Negative); Color,Urine Light Yellow; Glucose,Urine (UA) Negative (Negative); Ketones,Urine 1+ (Negative); Leukocyte Esterase,Urine Negative (Negative); Mucus,Urine Rare /hpf; Nitrite,Urine Negative (Negative); PH, Urine 6.5 (5.0-8.0); Protein,Urine Negative (Negative); RBC,Urine 1 /hpf (0-5); Specific Gravity,Urine 1.009 (1.001-1.035); Urobilinogen,Urine <2.0 mg/dL (<2.0); WBC,Urine 1 /hpf (0-5)
[2023-02-25] MEDS ORDERED: NALOXONE 0.4 MG/ML 1 ML VIAL IV PRN (03:28)
[2023-02-25] MEDS ORDERED: METOPROLOL SUCCINATE (ER) 50 MG TAB.ER.24H PO STA (03:33)
--- NOTE | 2023-02-25 03:57 | XR ---
EXAM: XR Chest, 2 Views CLINICAL HISTORY: ITS.REASON XR Reason: dysrhythmia TECHNIQUE: Frontal and lateral views of the chest. COMPARISON: No relevant prior studies available. FINDINGS: Lungs: No consolidation or mass. Pleural space: No effusion. Heart: Mild cardiomegaly. Bones/joints: No acute findings. IMPRESSION: No acute cardiopulmonary process.
--- NOTE | 2023-02-25 08:48 | P.HPIM ---
History of Present Illness H&P Date: 02/25/23 Patient is a 82-year-old male with history of recently diagnosed atrial fibrillation, hypertension, hearing disorder, and lung nodule presenting with heart palpitations. He claims that he noted heart palpitations this morning, denies any chest pain, shortness of breath, abdominal pain, nausea, vomiting, diarrhea, constipation, or urinary complaints. He denies any recent medication changes. He follows with cardiology. He uses alcohol occasionally, denies any smoking or illicit drug use. In the ED, patient was tachycardic up to 128, blood pressure 125/81, saturating at 97% on room air, temperature 97.5, respiratory rate 18. Lab work showed unremarkable CBC, BMP, troponin negative. EKG personally interpreted showed atrial fibrillation with RVR. Chest x-ray personally interpreted showed no acute process. Patient was given oral metoprolol and IV fluids. Patient was admitted as observation for atrial fibrillation with RVR with cardiology consult. Pertinent positives and negatives as discussed in HPI, a complete review of systems was performed and all other systems are negative. Patient seen and examined at bedside. Vital signs reviewed General: nontoxic, no distress, appears at stated age Derm: warm, dry Head: atraumatic, normocephalic, symmetric Eyes: EOMI, no lid lag, anicteric sclera, pupils equal round reactive to light ENT: Nose and ears atraumatic Neck: No thyromegaly, supple Mouth: no lip lesion, mucus membranes moist Cardiovascular: S1S2 reg, no murmur, no edema Lungs: clear to auscultation bilateral, no rhonchi, no rales, no wheeze, no ac cessory muscle use Abdominal: soft, nontender to palpation, no guarding, no appreciable organomegaly Ext: no gross muscle atrophy, muscle strength muscle strength 5 out of 5 in all 4 extremities, no contractures Neuro: CN II-XII grossly intact Psych: Alert, oriented, appropriate affect Assessment/Plan: Active: Atrial fibrillation with RVR, now rate controlled -EKG personally interpreted, shows atrial fibrillation with RVR -Chest x-ray personally interpreted shows no acute process -Patient was recently diagnosed with atrial fibrillation, TSH was within normal limits. -Cardiology consulted -Telemetry -Continue metoprolol 50 mg daily, and Eliquis 5 mg twice a day Chronic: Hypertension Lung nodule Hearing disorder The patient is admitted with an anticipated less than 2 midnight stay as observation status for evaluation of A. fib with RVR. Surrogate decision-maker: Daughter CODE STATUS: Full code DVT prophylaxis: Eliquis Anticipated discharge date: Likely today Anticipated discharge place: Home A total of 55 minutes was spent on the care of this complex patient more than 50% of the time was spent in counseling and care coordination. Past Medical History Past Medical History: Hearing Disorder / Deafness, Hypertension Additional Past Medical History / Comment(s): ABDELRAHMAN HEARING AIDS. Cervical Stenosis History of Any Multi-Drug Resistant Organisms: None Reported Past Surgical History: Tonsillectomy Additional Past Surgical History / Comment(s): COLONOSCOPY Past Anesthesia/Blood Transfusion Reactions: No Reported Reaction Additional Past Anesthesia/Blood Transfusion Reaction / Comment(s): PTS UNSURE OF FAMILY HX. Past Psychological History: No Psychological Hx Reported Smoking Status: Former smoker Past Alcohol Use History: Daily, Occasional Past Drug Use History: None Reported - Past Family History Mother History Unknown: Yes Family Medical History: No Reported History Medications and Allergies Home Medications Medication Instructions Recorded Confirmed Type Apixaban [Eliquis] 5 mg PO BID #60 tab 01/24/23 02/25/23 Rx Metoprolol Succinate (ER) [Toprol 50 mg PO DAILY #30 tab 01/25/23 02/25/23 Rx XL] Ascorbic Acid/Multivit-Min 1,000 mg PO DAILY 02/25/23 02/25/23 History [Emergen-C 1,000 mg Packet] Allergies Allergy/AdvReac Type Severity Reaction Status Date / Time No Known Allergies Allergy Verified 02/25/23 07:34 Physical Exam Vitals: Vital Signs Temp Pulse Pulse Resp BP Pulse Ox 02/25/23 08:00 98.1 F 93 16 114/91 98 02/25/23 07:00 98.2 F 90 16 127/81 98 02/25/23 06:00 82 17 117/83 98 02/25/23 05:30 81 16 126/81 98 02/25/23 05:00 86 117/80 98 02/25/23 04:30 86 114/84 99 02/25/23 04:00 92 17 114/95 98 02/25/23 03:30 90 123/88 98 02/25/23 03:02 93 124/97 98 02/25/23 02:47 90 17 121/88 99 02/25/23 02:30 86 17 125/97 98 02/25/23 02:15 97 17 125/84 97 02/25/23 02:08 90 17 120/85 96 02/25/23 02:05 107 H 17 123/96 96 02/25/23 02:03 97 18 138/92 95 02/25/23 02:02 98 5 L 138/92 97 02/25/23 01:59 118 H 18 138/92 98 02/25/23 01:52 135 H 02/25/23 01:36 97.7 F 128 H 18 125/81 97 Intake and Output 02/24/23 02/25/23 02/25/23 22:59 06:59 14:59 Other: Weight 71.668 kg Results CBC & Chem 7: 02/25/23 01:51 02/25/23 01:51 Labs: Abnormal Lab Results - Last 24 Hours (Table) 02/25/23 Range/Units 01:51 Urine Ketones 1+ H (Negative) Urine Blood Trace H (Negative) Urine Mucus Rare H (None) /hpf
--- NOTE | 2023-02-25 08:51 | P.DS ---
Providers Date of admission: 02/25/23 03:33 Expected date of discharge: 02/25/23 Attending physician: Eliza Mayfield MD Consults: 02/25/23 03:28 Consult Physician Routine Consulting Provider: [facility] Consult Reason/Comments: afib with rvr Do you want consulting provider notified?: Yes Primary care physician: Jeramy Oh MD Hospital Course: Discharge Diagnosis: Atrial fibrillation with RVR Hypertension Lung nodule Hearing disorder Hospital Course: Patient is a 82-year-old male with history of recently diagnosed atrial fibri llation, hypertension, hearing disorder, and lung nodule presenting with heart palpitations. In the ED, patient was tachycardic up to 128, blood pressure 125/81, saturating at 97% on room air, temperature 97.5, respiratory rate 18. Lab work showed unremarkable CBC, BMP, troponin negative. EKG showed atrial fibrillation with RVR. Chest x-ray showed no acute process. Patient was given oral metoprolol and IV fluids. Patient was admitted as observation for atrial fibrillation with RVR with cardiology consult. Patient was rate controlled. He was evaluated by nitish muhammad for discharge. He will follow-up with cardiology as an outpatient. Patient seen and examined at bedside. Vital signs reviewed and stable. General: nontoxic, no distress, appears at stated age Derm: warm, dry Head: atraumatic, normocephalic, symmetric Eyes: EOMI, no lid lag, anicteric sclera Mouth: no lip lesion, mucus membranes moist Cardiovascular: S1S2 irregular, no murmur Lungs: CTA bilateral, no rhonchi, no rales , no accessory muscle use Abdominal: soft, nontender to palpation, no guarding, no appreciable organomegaly Ext: no gross muscle atrophy, no edema, no contractures Neuro: CN II-XI grossly intact, no focal neuro deficits Psych: Alert, oriented, appropriate affect A total of 33 minutes of time were spent preparing this complex discharge summary. Patient was discharged on 02/25/23 at 8:46. Patient Condition at Discharge: Stable Plan - Discharge Summary New Discharge Prescriptions: Continue Apixaban [Eliquis] 5 mg PO BID #60 tab Metoprolol Succinate (ER) [Toprol XL] 50 mg PO DAILY #30 tab Ascorbic Acid/Multivit-Min [Emergen-C 1,000 mg Packet] 1,000 mg PO DAILY Discharge Medication List Apixaban [Eliquis] 5 mg PO BID #60 tab 01/24/23 [Rx] Metoprolol Succinate (ER) [Toprol XL] 50 mg PO DAILY #30 tab 01/25/23 [Rx] Ascorbic Acid/Multivit-Min [Emergen-C 1,000 mg Packet] 1,000 mg PO DAILY 02/25/23 [History] Follow up Appointment(s)/Referral(s): Rosemary Feng MD [STAFF PHYSICIAN] - 1 Week Jeramy Oh MD [Primary Care Provider] - 1-2 days Patient Instructions/Handouts: A-fib (Atrial Fibrillation) (DC) Activity/Diet/Wound Care/Special Instructions: Please see your Nutrition Instructor. Discharge Disposition: HOME SELF-CARE
[2023-02-25] MEDS ORDERED: METOPROLOL SUCCINATE (ER) 50 MG TAB.ER.24H PO SCH (09:00)
[2023-02-25] MEDS ORDERED: APIXABAN 5 MG TAB PO SCH (09:00)
--- NOTE | 2023-02-25 09:56 | P.CRDCN ---
History of Present Illness Consult date: 02/25/23 History of present illness: History of present illness: This is an 82 year old male patient of Dr. Coyle with past medical history of paroxysmal atrial fibrillation, hypertension. Patient states he woke up last night with heart beating rapid and heavy. He has been taking all of his medications as directed. He denies having any chest pain, no lightheadedness or dizzy illness. No nausea or vomiting. No fever or chills, no cough. No shortness of breath. shelter monitor is atrial fibrillation with rate controlled at this time. Patient received Toprol 50 mg 1-1/2 L of IV fluids. Patient is seen today in the emergency center waiting for a bed on the [facility] floor. EKG atrial fibrillation with ventricular rate of 137 Chest x-ray: No acute process. CBC is unremarkable. Electrolytes and renal function liver function test and troponin all normal limits. Magnesium 2.2 and potassium 3.9. Home cardiac medications: Eliquis 5 mg twice daily, Toprol-XL 50 mg daily Echocardiogram 01/24/2023 revealed EF of 50-55%. Review Of Systems: At the time of my evaluation: Constitutional: No fever, no chills. No weakness, fatigue or lethargy. EENT: No headache. No dizziness. Lungs: No shortness of breath, cough, no sputum production. No wheezing. Cardiovascular: No chest pain, no lower extremity edema. No palpitations. No paroxysmal nocturnal dyspnea. No orthopnea. No lightheadedness or dizziness. No syncopal episodes. Abdominal: No abdominal pain. No nausea, vomiting. No diarrhea. No constipation. No bloody or tarry stools. Genitourinary: No dysuria.. No urinary retention. Musculoskeletal: No myalgias. No muscle weakness, no frequent falls. No back pain. No neck pain. Integumentary: No wounds. No rash. No unusual bruising. Neurologic: No aphasia. No facial droop. No change in mentation. No head injury. No headache. Physical examination: Gen: This is a an 82 year old male. He is resting in the ER stretcher and appears to be comfortable and in no acute distress VS: reviewed HEENT: Head is atraumatic, normocephalic. Pupils equal, round. Sclerae is anicteric. NECK: Supple. No JVD. . LUNGS: Clear to auscultation. No wheezes or rhonchi. No intercostal retractions. HEART: Regular rate and rhythm. No murmur. Greater than 35 minutes was utilized and coordinating patient's discharge. ABDOMEN: Soft No tenderness. EXTREMITIES: No pedal edema. No calf tenderness. NEUROLOGICAL: Patient is awake, alert and oriented x3. Assessment: Paroxysmal atrial fibrillation with RVR Hypertension Plan: Continue patient's current medications Patient is cleared from cardiology for discharge and may follow-up with Dr. Shyanne andersen in the office in one to 2 weeks. Thank you kindly for this consultation. Nurse practitioner note has been reviewed, I agree with documented findings and plan of care. Patient was seen and examined. Past Medical History Past Medical History: Hearing Disorder / Deafness, Hypertension Additional Past Medical History / Comment(s): ABDELRAHMAN HEARING AIDS. Cervical Stenosis History of Any Multi-Drug Resistant Organisms: None Reported Past Surgical History: Tonsillectomy Additional Past Surgical History / Comment(s): COLONOSCOPY Past Anesthesia/Blood Transfusion Reactions: No Reported Reaction Additional Past Anesthesia/Blood Transfusion Reaction / Comment(s): PTS UNSURE OF FAMILY HX. Past Psychological History: No Psychological Hx Reported Smoking Status: Former smoker Past Alcohol Use History: Daily, Occasional Past Drug Use History: None Reported - Past Family History Mother History Unknown: Yes Family Medical History: No Reported History Medications and Allergies Home Medications Medication Instructions Recorded Confirmed Type Apixaban [Eliquis] 5 mg PO BID #60 tab 01/24/23 02/25/23 Rx Metoprolol Succinate (ER) [Toprol 50 mg PO DAILY #30 tab 01/25/23 02/25/23 Rx XL] Ascorbic Acid/Multivit-Min 1,000 mg PO DAILY 02/25/23 02/25/23 History [Emergen-C 1,000 mg Packet] Allergies Allergy/AdvReac Type Severity Reaction Status Date / Time No Known Allergies Allergy Verified 02/25/23 07:34 Physical Exam Vitals: Vital Signs Temp Pulse Pulse Resp BP Pulse Ox 02/25/23 06:00 82 17 117/83 98 02/25/23 05:30 81 16 126/81 98 02/25/23 05:00 86 117/80 98 02/25/23 04:30 86 114/84 99 02/25/23 04:00 92 17 114/95 98 02/25/23 03:30 90 123/88 98 02/25/23 03:02 93 124/97 98 02/25/23 02:47 90 17 121/88 99 02/25/23 02:30 86 17 125/97 98 02/25/23 02:15 97 17 125/84 97 02/25/23 02:08 90 17 120/85 96 02/25/23 02:05 107 H 17 123/96 96 02/25/23 02:03 97 18 138/92 95 02/25/23 02:02 98 5 L 138/92 97 02/25/23 01:59 118 H 18 138/92 98 02/25/23 01:52 135 H 02/25/23 01:36 97.7 F 128 H 18 125/81 97 Intake and Output 02/24/23 02/25/23 02/25/23 22:59 06:59 14:59 Other: Weight 71.668 kg Results 02/25/23 01:51 02/25/23 01:51 Cardiac Enzymes 02/25/23 02/25/23 Range/Units 01:51 01:51 AST 31 (17-59) U/L Troponin I <0.012 (0.000-0.034) ng/mL Coagulation 02/25/23 Range/Units 01:51 PT 11.3 (9.0-12.0) sec APTT 26.3 (22.0-30.0) sec CBC 02/25/23 Range/Units 01:51 WBC 5.4 (3.8-10.6) k/uL RBC 4.57 (4.30-5.90) m/uL Hgb 14.5 (13.0-17.5) gm/dL Hct 43.2 (39.0-53.0) % Plt Count 183 (150-450) k/uL Comprehensive Metabolic Panel 02/25/23 Range/Units 01:51 Sodium 139 (137-145) mmol/L Potassium 3.9 (3.5-5.1) mmol/L Chloride 103 (98-107) mmol/L Carbon Dioxide 25 (22-30) mmol/L BUN 13 (9-20) mg/dL Creatinine 1.03 (0.66-1.25) mg/dL Glucose 93 (74-99) mg/dL Calcium 9.3 (8.4-10.2) mg/dL AST 31 (17-59) U/L ALT 20 (4-49) U/L Alkaline Phosphatase 72 (38-126) U/L Total Protein 7.3 (6.3-8.2) g/dL Albumin 4.3 (3.5-5.0) g/dL Current Medications Generic Name Dose Route Start Last Admin Trade Name Freq PRN Reason Stop Dose Admin Apixaban 5 mg 02/25/23 09:00 Apixaban 5 Mg Tab PO BID WESLEY Protocol Metoprolol Tartrate 2.5 mg 02/25/23 02:00 02/25/23 02:05 Metoprolol Tartrate 5 Mg/5 Ml Vial IVP 2.5 mg Q5M WESLEY Administration Naloxone HCl 0.2 mg 02/25/23 03:28 Naloxone 0.4 Mg/Ml 1 Ml Vial IV Q2M PRN Opioid Reversal Intake and Output 02/24/23 02/25/23 02/25/23 22:59 06:59 14:59 Other: Weight 71.668 kg 02/25/23 01:51 02/25/23 01:51
[2023-02-25 10:01] VITALS: BP 123/80; PULSE 96; RESP 18; TEMP 97.7
[2023-02-26] MEDS ORDERED: METOPROLOL SUCCINATE (ER) 50 MG TAB.ER.24H PO SCH (09:00)
== END 2023-02-25 19:23 | disposition home or self-care (01) ==
LOC: EC 01:30 → 6NMEDSUR 03:33 → 3SCARD 03:53
PROVIDERS: ADMIT Internal Medicine; ATTEND Internal Medicine
DX: I48.0 Paroxysmal atrial fibrillation (principal); I10 Essential (primary) hypertension; H91.90 Unspecified hearing loss, unspecified ear; R91.1 Solitary pulmonary nodule; M48.02 Spinal stenosis, cervical region; Z79.01 Long term (current) use of anticoagulants; Z79.899 Other long term (current) drug therapy; Z97.4 Presence of external hearing-aid; Z98.890 Other specified postprocedural states; Z87.891 Personal history of nicotine dependence
CPT/HCPCS: 96374; 99285; 36415; 93005; 80053; 83735; 84484; 85025; 85610; 85730; 81001; 71046; G0378 ×2

== ENCOUNTER 2023-05-01 11:44 | Emergency (ER) | payer MEDICARE ==
--- NOTE | 2023-05-01 12:53 | ED ---
General Adult HPI - General Chief complaint: Extremity Injury, Lower Stated complaint: R foot Injury,Sent over from UrgentCare Time Seen by Provider: 05/01/23 12:00 Source: patient, RN notes reviewed, old records reviewed Mode of arrival: ambulatory Limitations: no limitations - History of Present Illness Initial comments: This is an 83-year-old male who presents emergency Department complaining of swelling to the right ankle with bruising down to the heel. Patient states he is on eliquis. Patient states a few days ago he had a bed twisted his leg and bumped up against the dresser and twisted his ankle. Patient states he went to the urgent care and they told him that he did not have any fractures. Patient states the swelling got worse and the ecchymotic area on the lateral malleolus and the heel got worse over that time she went back to using care today and they sent him in for rule out dvt. patient has no calf tenderness. patient has no swelling in the calf area. Patient has no difficulty breathing shortness of breath - Related Data Home Medications Medication Instructions Recorded Confirmed Ascorbic Acid/Multivit-Min 1,000 mg PO DAILY 02/25/23 02/25/23 [Emergen-C 1,000 mg Packet] Previous Rx's Medication Instructions Recorded Apixaban [Eliquis] 5 mg PO BID #60 tab 01/24/23 Metoprolol Succinate (ER) [Toprol 50 mg PO DAILY #30 tab 01/25/23 XL] Allergies Allergy/AdvReac Type Severity Reaction Status Date / Time No Known Allergies Allergy Verified 05/01/23 12:00 Review of Systems ROS Statement: Those systems with pertinent positive or pertinent negative responses have been documented in the HPI. ROS Other: All systems not noted in ROS Statement are negative. Past Medical History Past Medical History: Hearing Disorder / Deafness, Hypertension Additional Past Medical History / Comment(s): ABDELRAHMAN HEARING AIDS. Cervical Stenosis History of Any Multi-Drug Resistant Organisms: None Reported Past Surgical History: Tonsillectomy Additional Past Surgical History / Comment(s): COLONOSCOPY Past Anesthesia/Blood Transfusion Reactions: No Reported Reaction Additional Past Anesthesia/Blood Transfusion Reaction / Comment(s): PTS UNSURE OF FAMILY HX. Past Psychological History: No Psychological Hx Reported Smoking Status: Former smoker Past Alcohol Use History: Daily, Occasional Past Drug Use History: None Reported - Past Family History Mother History Unknown: Yes Family Medical History: No Reported History General Exam - General Exam Comments Initial Comments: GENERAL Patient is well-developed and well-nourished. Patient is in mild distress. EYES Patient's pupils are equal and round. Extraocular motion is intact SKIN Unremarkable NEURO The patient is alert and oriented 3 PYSCH Patient has normal interpersonal interactions. MUSCULOSKELETAL Lateral malleolus is swollen and there are areas ecchymotic and there is ecchymosis down into the heel. The area of the calf is no swelling no ecchymosis and is not tender. patient's lateral malleolus is extremely tender Limitations: no limitations Course Vital Signs 05/01/23 11:58 Temperature 97.8 F Pulse Rate 61 Respiratory 20 Rate Blood Pressure 137/78 O2 Sat by Pulse 98 Oximetry Medical Decision Making - Medical Decision Making Was pt. sent in by a medical professional or institution (, [facility], [employer], urgent care, hospital, or alf...) When possible be specific @ -Urgent care sent the patient emergency department to be evaluated Did you speak to anyone other than the patient for history (EMS, parent, family, police, friend...)? What history was obtained from this source @ -No Did you review nursing and triage notes (agree or disagree)? Why? @ -I reviewed and agree with nursing and triage notes Were old charts reviewed (outside hosp., previous admission, EMS record, old EKG, old radiological studies, urgent care reports/EKG's, alf records)? Report findings @ -I reviewed charts obtained from the urgent care. Differential Diagnosis (chest pain, altered mental status, abdominal pain women, abdominal pain men, vaginal bleeding, weakness, fever, dyspnea, syncope, headache, dizziness, GI bleed, back pain, seizure, CVA, palpatations, mental health, musculoskeletal)? @ -Differential Musculoskeletal Muscular strain, contusion, ligament sprain, fracture, arthritis, septic arthritis, bursitis, cellulitis, muscle spasm, nerve compression, DVT, arterial occlusion, herpes zoster, electrolyte abnormality, tumor.... This is not meant to be in all inclusive list EKG interpreted by me (3pts min.). @ -As above X-rays interpreted by me (1pt min.). @ -X-ray of the ankle shows a distal fibula avulsion fracture CT interpreted by me (1pt min.). @ -None done U/S interpreted by me (1pt. min.). @ -Ultrasound showed negative for DVT What testing was considered but not performed or refused? (CT, X-rays, U/S, labs)? Why? @ -None What meds were considered but not given or refused? Why? @ -None Did you discuss the management of the patient with other professionals (professionals i.e. Dr., PA, [employer] SALESPERSON, lab, RT, psych nurse, school social worker, evidence custodian, teacher, senior administrative services officer, telehealth case manager)? Give summary @ -No Was smoking cessation discussed for >3mins.? @ -No Was critical care preformed (if so, how long)? @ -No Were there social determinants of health that impacted care today? How? (Homelessness, low income, unemployed, alcoholism, drug addiction, transportation, low edu. Level, literacy, decrease access to med. care, custodial, rehab)? @ -No Was there de-escalation of care discussed even if they declined (Discuss DNR or withdrawal of care, Hospice)? DNR status @ -No What co-morbidities impacted this encounter? (DM, HTN, Smoking, COPD, CAD, Cancer, CVA, ARF, Chemo, Hep., AIDS, mental health diagnosis, sleep apnea, morbid obesity)? @ -None Was patient admitted / discharged? Hospital course, mention meds given and route, prescriptions, significant lab abnormalities, going to OR and other pertinent info. @ -Patient did not want a splint because he needed to walk on that leg he did not feel so he could ambulate on one leg only. Patient get a ankle Aircast and will follow-up with [facility] Undiagnosed new problem with uncertain prognosis? @ -No Drug Therapy requiring intensive monitoring for toxicity (Heparin, Nitro, Insulin, Cardizem)? @ -No Were any procedures done? @ -No Diagnosis/symptom? @ -Fibula avulsion fracture Acute, or Chronic, or Acute on Chronic? @ -Acute Uncomplicated (without systemic symptoms) or Complicated (systemic symptoms)? @ -Uncomplicated Side effects of treatment? @ -No Exacerbation, Progression, or Severe Exacerbation? @ -No Poses a threat to life or bodily function? How? (Chest pain, [place], [place], pneumonia, PE, COPD, DKA, ARF, appy, cholecystitis, CVA, Diverticulitis, Homicidal, Suicidal, threat to staff... and all critical care pts) @ -No Disposition Clinical Impression: Avulsion fracture of distal fibula Disposition: HOME SELF-CARE Instructions (If sedation given, give patient instructions): Ankle Fracture (ED) Is patient prescribed a controlled substance at d/c from ED?: No Referrals: Jesse Robert DO [Doctor of Osteopathic Medicine] - 1-2 days Time of Disposition: 13:48
--- NOTE | 2023-05-01 13:05 | XR ---
EXAMINATION TYPE: XR ankle complete RT DATE OF EXAM: 05/01/2023 COMPARISON: NONE HISTORY: 83-year-old male with pain and swelling after fall TECHNIQUE: 3 views FINDINGS: Circumferential soft tissue swelling, greatest along the lateral and inferior aspects. Ther e is small curvilinear fracture fragment measuring 4 mm from the inferior tip of the lateral malleolu s. Ankle mortise is otherwise congruent. Talar dome is intact. Small plantar heel spur. IMPRESSION: Circumferential soft tissue swelling especially anteriorly and laterally. Tiny 4 mm avulsion fracture fragment from the inferior lateral malleolus. There may be additional underlying ligamentous injurie s.
--- NOTE | 2023-05-01 13:22 | US ---
EXAMINATION TYPE: US venous doppler duplex LE RT DATE OF EXAM: 05/01/2023 1:01 PM COMPARISON: NONE CLINICAL INDICATION: Male, 83 years old with history of Swollen legs; Right ankle injury SIDE PERFORMED: Right TECHNIQUE: The lower extremity deep venous system is examined utilizing real time linear array sonog zeke with graded compression, doppler sonography and color-flow sonography. VESSELS IMAGED: Common Femoral Vein Deep Femoral Vein Greater Saphenous Vein * Femoral Vein Popliteal Vein Small Saphenous Vein * Proximal Calf Veins (* superficial vessels) Right Leg: Negative for DVT IMPRESSION: No evidence for DVT within the right lower extremity imaged from the groin to the upper calf.
[2023-05-01 14:13] VITALS: BP 140/89; PULSE 94; RESP 18; TEMP 97.9
== END 2023-05-01 14:00 | disposition home or self-care (01) ==
LOC: EC 11:44
DX: S82.831A Other fracture of upper and lower end of right fibula, initial encounter for closed fracture (principal); I10 Essential (primary) hypertension; Z87.891 Personal history of nicotine dependence; Z79.01 Long term (current) use of anticoagulants; Z79.899 Other long term (current) drug therapy; X50.1XXA Overexertion from prolonged static or awkward postures, initial encounter
CPT/HCPCS: 99284

== ENCOUNTER → 2023-11-11 | Outpatient (CLI) | payer MEDICARE ==
[2023-11-11 15:38] LABS: Basophils # (A) 0.03 X 10*3/uL (0.00-0.10); Basophils % (A) 0.5 %; Eosinophils # (A) 0.32 X 10*3/uL (0.04-0.35); Eosinophils % (A) 5.4 %; HCT 41.9 % (39.6-50.0); HGB 13.5 g/dL (13.0-17.0); Lymphocytes % (A) 25.2 %; MCH 30.8 pg (27.0-32.0); MCHC 32.2 g/dL (32.0-37.0); MCV 95.4 FL (80.0-97.0); Mean Platelet Volume 11.4 FL (9.5-12.2); Monocytes # (A) 0.58 X 10*3/uL (0.20-1.00); Monocytes % (A) 9.7 %; NRBC Per 100 WBC 0 X 10*3/uL (0.00-0.01); Neutrophils # (A) 3.51 X 10*3/uL (1.80-7.70); Platelet Count 183 X 10*3/uL (140-440); RBC 4.39 X 10*6/uL (4.40-5.60); RDW 12.5 % (11.5-14.5); WBC 5.95 X 10*3/uL (4.50-10.00)
[2023-11-11 16:37] LABS: Chol/HDL Ratio 2.83 Ratio; Magnesium 2.3 mg/dL (1.5-2.4); VLDL Calculation 13.92 mg/dL (5.00-40.00)
[2023-11-11 16:38] LABS: ALT 18 U/L (10-49); AST 27 U/L (14-35); Albumin 4.3 g/dL (3.8-4.9); Albumin/Globulin Ratio 1.79 Ratio (1.60-3.17); Alkaline Phosphatase 93 U/L (41-126); BUN/Creat Ratio 17.33 Ratio (12.00-20.00); Blood Urea Nitrogen 20.8 mg/dL (9.0-27.0); Calcium 9.2 mg/dL (8.7-10.3); Carbon Dioxide 26.8 mmol/L (21.6-31.8); Chloride 108 mmol/L (96-109); Globulin 2.4 g/dL (1.6-3.3); Glucose 99 mg/dL (70-110); LDL Cholesterol,Calculated 95.4 mg/dL (0.0-131.0); Potassium 4.3 mmol/L (3.5-5.5); Sodium 143 mmol/L (135-145); Total Bilirubin 0.2 mg/dL (0.3-1.2); Total Protein 6.7 g/dL (6.2-8.2)
== END | disposition home or self-care (01) ==
LOC: LABWHC1 10:02
PROVIDERS: ATTEND Internal Medicine
DX: I48.91 Unspecified atrial fibrillation (principal); E53.8 Deficiency of other specified B group vitamins; R41.3 Other amnesia
CPT/HCPCS: 36415; 80053; 80061; 82140; 82607; 82746; 83735; 84443; 85025; 86780

== ENCOUNTER → 2023-11-28 | Outpatient (CLI) | payer MEDICARE ==
--- NOTE | 2023-11-29 08:45 | MR ---
EXAMINATION TYPE: MR brain wo/w con DATE OF EXAM: 11/28/2023 COMPARISON: None HISTORY: Memory loss, forgetfulness, CONTRAST: Performed utilizing 7.5 mL intravenous Gadavist gadolinium contrast. TECHNIQUE: Multiplanar, multiecho imaging on a 3.0 Selina magnet is performed through the brain. Stud y is performed within 24 hours of arrival to the hospital. The craniovertebral junction is normal. The pituitary is normal. Diffusion-weighted imaging is performed. No abnormal hyperintensity is present to suggest an acute i ntracranial infarct or acute ischemic change. There are scattered punctate areas of hyperintensity on T2 and Inversion Recovery weighted sequences which are non-specific but can be related to microvascular ischemic changes. Ventricles and sulci are prominent for the patient age. No suspicious enhancement is evident IMPRESSION: 1. Atrophy with chronic appearing periventricular white matter ischemic-type changes.
== END | disposition home or self-care (01) ==
LOC: RADMRIMAIN 15:26
PROVIDERS: ATTEND Internal Medicine
DX: G31.9 Degenerative disease of nervous system, unspecified (principal); R90.82 White matter disease, unspecified; I67.82 Cerebral ischemia; R41.3 Other amnesia
CPT/HCPCS: 70553; A9585

== ENCOUNTER → 2024-02-09 | Outpatient (CLI) | payer MEDICARE | END | disposition home or self-care (01) | LOC: LABWHC1 12:13 | PROVIDERS: ATTEND Psychiatry & Neurology Neurology | DX: Z53.9 Procedure and treatment not carried out, unspecified reason (principal) ==

== ENCOUNTER → 2024-02-21 | Outpatient (CLI) | payer MEDICARE | END | disposition home or self-care (01) | LOC: LABWHC1 11:45 | PROVIDERS: ATTEND Psychiatry & Neurology Neurology | DX: F03.90 Unspecified dementia, unspecified severity, without behavioral disturbance, psychotic disturbance, mood disturbance, and anxiety (principal) | CPT/HCPCS: 36415 ==

== ENCOUNTER → 2024-02-23 | Outpatient (CLI) | payer MEDICARE ==
--- NOTE | 2024-02-23 11:56 | XR ---
EXAMINATION TYPE: XR chest 2V DATE OF EXAM: 02/23/2024 COMPARISON: None HISTORY: 83-year-old male R05.9, cough TECHNIQUE: Frontal and lateral views FINDINGS: The cardiomediastinal silhouette, aorta, and pulmonary vasculature are within normal limits. Some pat dusty posterior basilar opacity silhouetting the posterior diaphragms on the lateral view. Otherwise, l ungs and pleural spaces are clear. IMPRESSION: Some patchy posterior basilar atelectasis versus infiltrate. Clinically correlate. No other acute pro cess seen.
== END | disposition home or self-care (01) ==
LOC: RADXRMAIN 11:24
PROVIDERS: ATTEND Internal Medicine
DX: R05.9 Cough, unspecified (principal); J98.11 Atelectasis
CPT/HCPCS: 71046

== ENCOUNTER → 2024-03-15 | Outpatient (CLI) | payer MEDICARE ==
--- NOTE | 2024-03-15 19:22 | CT ---
EXAMINATION TYPE: CT chest wo con DATE OF EXAM: 03/15/2024 COMPARISON: 11/11/2022 HISTORY: follow up pulmonary nodule CT DLP: 320.3 mGycm, Automated exposure control for dose reduction was used. CONTRAST: Performed injected with 0 mL of Isovue 300. TECHNIQUE: Axial images were obtained at 5 mm thick sections. Reconstructed images are reviewed on [employer] computer in the coronal plane. FINDINGS: Portion of the thyroid visualized is normal. Tree-in-bud infiltrate may be slightly improved or less well-visualized in the posterior lateral righ t lung base the current examination. No suspicious increasing nodule or density is evident. Example i mage series 4 image 54. No enlarged mediastinal or hilar adenopathy is evident. There is a 0.9 cm pretracheal lymph node pre sent. The ascending aorta diameter at the level of the main pulmonary artery is 3.9 cm. The main pul monary artery diameter at the bifurcation is 2.7 cm. Mild coronary artery calcifications present. Limited CT sections are obtained through the upper abdomen. Abdomen is essentially unremarkable. IMPRESSION: 1. No suspicious progression. No new densities
== END | disposition home or self-care (01) ==
LOC: RADCTMAIN 08:44
PROVIDERS: ATTEND Internal Medicine
DX: R91.1 Solitary pulmonary nodule (principal)
CPT/HCPCS: 71250

== ENCOUNTER → 2024-10-26 | Outpatient (CLI) | payer MEDICARE ==
--- NOTE | 2024-10-26 12:23 | XR ---
EXAMINATION TYPE: XR chest 2V DATE OF EXAM: 10/26/2024 12:11 PM COMPARISON: Prior chest CT March 15, 2024 and older studies. CLINICAL INDICATION: Male, 84 years old with history of J45.909 ASTHMA, TECHNIQUE: Frontal and lateral views of the chest are obtained. FINDINGS: There is diminished inspiration on the frontal view with more prominent cardiac silhouette and left basilar opacity favoring atelectasis. Improved inspiration on lateral view without suspicio n basilar opacity is noted. The right lung is clear. The osseous structures are intact. IMPRESSION: As above. [facility], , 10/26/2024 12:20 PM
--- NOTE | 2024-10-26 12:26 | XR ---
EXAMINATION TYPE: XR shoulder complete LT, XR scapula LT, XR humerus LT, XR elbow complete LT DATE OF EXAM: 10/26/2024 12:11 PM COMPARISON: None. CLINICAL INDICATION: Male, 84 years old with history of W19.XXXA FALL AT HOME, pain TECHNIQUE: Two views of the left humerus and scapula are obtained. 3 views left shoulder and elbow. FINDINGS: No acute displaced fracture in the left scapula. No acute fracture or dislocation of the l eft shoulder. Moderate to severe narrowing at the acromioclavicular joint is present. There is no acu te fracture or dislocation seen in the left humerus. No acute displaced fracture of the left elbow. No abnormal fat pad signs. Overlying soft tissue is unremarkable. IMPRESSION: No acute fracture or dislocation is evident in the left shoulder, scapula, humerus, or e lbow. [facility], , 10/26/2024 12:24 PM
== END | disposition home or self-care (01) ==
LOC: RADXRMAIN 11:26
PROVIDERS: ATTEND Internal Medicine
DX: J45.909 Unspecified asthma, uncomplicated (principal); W19.XXXA Unspecified fall, initial encounter; R91.8 Other nonspecific abnormal finding of lung field
CPT/HCPCS: 71046

== ENCOUNTER → 2024-11-05 | Outpatient (CLI) | payer MEDICARE ==
[2024-11-05 14:50] LABS: Basophils # (A) 0.03 X 10*3/uL (0.00-0.10); Basophils % (A) 0.7 %; Eosinophils # (A) 0.31 X 10*3/uL (0.04-0.35); Eosinophils % (A) 6.9 %; HCT 44.8 % (39.6-50.0); HGB 14.2 g/dL (13.0-17.0); Lymphocytes # (A) 1.69 X 10*3/uL (0.90-5.00); Lymphocytes % (A) 37.4 %; MCH 30.6 pg (27.0-32.0); MCHC 31.7 g/dL (32.0-37.0); MCV 96.6 FL (80.0-97.0); Mean Platelet Volume 11.2 FL (9.5-12.2); Monocytes # (A) 0.44 X 10*3/uL (0.20-1.00); Monocytes % (A) 9.7 %; NRBC Per 100 WBC 0 X 10*3/uL (0.00-0.01); Neutrophils # (A) 2.03 X 10*3/uL (1.80-7.70); Neutrophils % (A) 44.9 %; Platelet Count 224 X 10*3/uL (140-440); RBC 4.64 X 10*6/uL (4.40-5.60); RDW 11.9 % (11.5-14.5); WBC 4.52 X 10*3/uL (4.50-10.00)
[2024-11-05 15:33] LABS: % Iron Saturation 34.44 (15.00-50.00); ALT 20 U/L (10-49); AST 28 U/L (14-35); Albumin 4.3 g/dL (3.8-4.9); Albumin/Globulin Ratio 1.72 Ratio (1.60-3.17); Alkaline Phosphatase 73 U/L (41-126); BUN/Creat Ratio 14.62 Ratio (12.00-20.00); Calcium 9.4 mg/dL (8.7-10.3); Carbon Dioxide 26.3 mmol/L (21.6-31.8); Chloride 104 mmol/L (96-109); Chol/HDL Ratio 2.76 Ratio; Globulin 2.5 g/dL (1.6-3.3); Glucose 99 mg/dL (70-110); Iron 104 UG/DL (65-175); LDL Cholesterol,Calculated 110.3 mg/dL (0.0-131.0); Magnesium 2.1 mg/dL (1.5-2.4); Potassium 4.6 mmol/L (3.5-5.5); Sodium 142 mmol/L (135-145); Total Bilirubin 0.7 mg/dL (0.3-1.2); Total Iron Binding Capacity 302 UG/DL (228-460); Total Protein 6.8 g/dL (6.2-8.2)
== END | disposition home or self-care (01) ==
LOC: LABWHC1 09:31
PROVIDERS: ATTEND Internal Medicine
DX: I48.91 Unspecified atrial fibrillation (principal); E53.8 Deficiency of other specified B group vitamins
CPT/HCPCS: 36415; 80053; 80061; 82607; 82728; 82746; 83540; 83550; 83735; 84443; 85025

== ENCOUNTER → 2025-01-02 | Outpatient (CLI) | payer MEDICARE | END | disposition home or self-care (01) | LOC: LABWHC1 14:29 | PROVIDERS: ATTEND Psychiatry & Neurology Neurology | DX: R41.3 Other amnesia (principal); R20.2 Paresthesia of skin; Z79.899 Other long term (current) drug therapy | CPT/HCPCS: 36415; 82607; 82746; 83036; 84443 ==